=== PATIENT | male | born 1940 | race Caucasian/White ===

== ENCOUNTER → 2016-11-19 | Day surgery (SDC) | payer OTHER ==
[~2016-11-19] VITALS: Ht 170.2 cm; Wt 135.0 kg
[~2016-11-19] MED LIST: ACET1TAB84 PO; AMLO-110 PO; APR/25 PO; AREDS PO; ASPI325T45 PO; ATEN-175 PO; ATOR10TA88 PO; CARV25TA PO; CINNOIL4 PO; DCL250 PO; FINA5TAB PO; FURO80TA63 PO; GUAI1TAB69 PO; HYDR100T12 PO; INSU70IN2 SC; LISI40TA PO; MISCTAB27 PO; OPTIRAY 320 IV PRN; OXGN; OXYC-57 PO; SENN-61 PO; SNK PO; SODIUM CHLORIDE 0.9% 1000ML 1,000 ML IV SCH; [UNRECOGNIZED DRUG - OTHER] PO; [UNRECOGNIZED DRUG - OTHER] PO; [UNRECOGNIZED DRUG - OTHER] PO
[2016-11-19 08:42] VITALS: BP 173/77; PULSE 65; TEMP 36.1; O2SAT 97; Ht 170.2 cm; Wt 135.0 kg
--- NOTE | 2016-11-19 13:29 | DIAGNOSTIC IMAGING REPORT ---
CT ANGIOGRAM OF THE ABDOMEN AND PELVIS COMBO CLINICAL HISTORY: Follow-up status post abdominal aortic aneurysm repair. COMPARISON STUDY: Abdominal CT dated 07/20/2013. TECHNIQUE: Before and following the IV administration of 118 cc of Optiray 320, CT angiogram of the abdomen and pelvis was performed from the lung bases the proximal femora using the stent graft protocol. Images are reviewed in the axial, sagittal, and coronal planes. 3-D MIPS images are created and assessed. IV contrast was administered without complication. CT DOSE: 5110.93 mGy.cm FINDINGS: Lower chest: The heart is enlarged and without pericardial effusion. The coronary arteries are densely calcified. Emphysematous changes noted in the lower lobes. There is dependent atelectasis. No airspace consolidation or pleural effusion is identified. Scarring is identified in the lingula. A 3 mm nodule in the right middle lobe seen on image #15 and a 6 mm nodule at the left lung base on image #74 are unchanged from 2013 and of doubtful significance. Liver: The contrast-enhanced liver is normal in size, contour, and attenuation. A 1.4 cm cyst is noted in the right lobe of the liver. There is no intrahepatic or ductal dilatation. The main portal veins appear patent. Gallbladder: Unremarkable. Spleen: Normal in size and attenuation. Pancreas: Unremarkable. Adrenal glands: There is nodular thickening of both adrenal glands. Kidneys: There is a 10 mm nonobstructing calculus in the lower pole of the right kidney. A 4 mm nonobstructing calculus is seen in the left upper pole. Renovascular calcifications are observed. The contrast enhanced kidneys are atrophic and without hydronephrosis. Large foci of cortical scarring are noted in the left kidney. The kidneys enhance symmetrically. Renal cysts measure up to 3.6 cm. Additional subcentimeter cortical hypodensities also likely represent cysts but are too small for definitive characterization. Abdominal aorta and iliac arteries: There is advanced atherosclerotic calcification of the abdominal aorta and iliac arteries. There are postoperative changes from aortobiiliac stent graft repair of a large bilobed infrarenal abdominal aortic aneurysm. The residual aneurysm sac measures 9.1 cm in AP diameter a.m. and 8.8 cm in transverse diameter. The stent graft is widely patent. There are type II endoleak identified, likely related to lumbar vessels. These are best seen on delayed postcontrast image #225 and #251. The origin of the inferior mesenteric artery has likely been occluded. Major branches of the abdominal aorta: The celiac trunk and superior mesenteric artery are widely patent. There is occlusion at the origin of the inferior mesenteric artery, likely secondary to coils. The distal inferior mesenteric artery is opacified, likely via retrograde flow. Hepatic arterial anatomy is conventional. The splenic artery is patent. The main renal arteries are patent bilaterally and accessory left renal artery has likely been occluded with coils. Bowel: The small bowel and colon are normal in course and caliber. There is mild colonic diverticulosis without CT evidence of acute diverticulitis. Colonic fecal retention is observed. The appendix is not identified and reported surgically absent. Peritoneum: There is no intraperitoneal free air or abdominal ascites. There is laxity of the ventral abdominal wall with diastases of the rectus musculature. Lymphadenopathy: Mildly enlarged retroperitoneal lymph nodes measure up to 1.2 cm in short axis as seen on image #253. There are mildly enlarged external iliac chain lymph nodes. A node on the right measures up to 1.3 cm in short axis as seen on image #383. Pelvic viscera: The prostate gland shows median lobe hypertrophy. The bladder wall is thickened and trabeculated suggesting chronic outlet obstruction. Skeletal structures: The skeletal structures are osteopenic. There is moderate lumbosacral spondylosis. Degenerative change is also seen in the sacroiliac joints. No lytic or blastic bony lesions are seen. IMPRESSION: 1. Again seen are postoperative changes from aortobiiliac stent graft repair of a large bilobed infrarenal abdominal aortic aneurysm. The stent graft is patent. 2. The residual aneurysm sac measures up to 9.1 x 8.8 cm. This has increased in size from 07/20/2013 when it measured 6.5 x 6.7 cm. 3. Several type II endoleaks are identified, likely related to lumbar vessels. 4. 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 5. Cardiomegaly and emphysema. 6. Bilateral nonobstructing renal calculi. 7. Mild colonic diverticulosis without CT evidence of acute diverticulitis. 8. Prostatomegaly with evidence of chronic bladder a little obstruction. 9. Additional findings as above. Electronically signed by: Enoch Willis M.D. 11/19/2016 1:28 PM Dictated Date/Time: 11/19/2016 1:09 PM
--- NOTE | 2016-11-28 08:17 | EDITING REQUIRED CODING QUERY ---
SUPPORTING DIAGNOSIS NEEDED A supporting diagnosis is required for the test/procedure performed on this patient in order for us to be reimbursed by ([employer]). Please provide a supporting diagnosis for the following tests listed below next to the test name along with your signature. *If there is no additional diagnosis for this patient that would support the following test/procedure please document that below next to the test/procedure. Tests that require a supporting diagnosis: DOS 11/19 * NSS before and after CTA DIAGNOSIS: Providers Signature: Thank you Mare Pugh
== END | disposition home or self-care (01) ==
LOC: C.MTU 08:30
PROVIDERS: ATTEND Surgery Vascular Surgery
DX: Z09 Encounter for follow-up examination after completed treatment for conditions other than malignant neoplasm (principal)

== ENCOUNTER 2016-12-09 07:25 | Day surgery (SDC) | payer OTHER ==
[2016-12-09] VITALS (8 sets, daily range): BP systolic 134–184; BP diastolic 63–83; PULSE 63–80; TEMP 36.5–37.5; O2SAT 92–96; Ht 170.2 cm; Wt 132.5 kg
[~2016-12-09] VITALS: Ht 170.2 cm; Wt 132.5 kg
[~2016-12-09 07:25] MED LIST changes: -ACET1TAB84 PO; -AMLO-110 PO; -APR/25 PO; -AREDS PO; -ASPI325T45 PO; -ATOR10TA88 PO; -CARV25TA PO; +CEFAZOLIN 1000MG/55 ML D5W IV SCH; +CEFAZOLIN 3000 MG/65 ML D5W IV SCH; -FURO80TA63 PO; -GUAI1TAB69 PO; +HYDR-4716 PO; -HYDR100T12 PO; -LISI40TA PO; -MISCTAB27 PO; -OPTIRAY 320 IV PRN; -SENN-61 PO; +SODIUM BICARBONATE IV SCH; -SODIUM CHLORIDE 0.9% 1000ML 1,000 ML IV SCH; +SODIUM CHLORIDE 0.9% 1000ML IV SCH; +SODIUM CHLORIDE 0.9% IV SCH; -[UNRECOGNIZED DRUG - OTHER] PO; -[UNRECOGNIZED DRUG - OTHER] PO; -[UNRECOGNIZED DRUG - OTHER] PO
[2016-12-09 08:15] LABS: CREATININE 1.3 mg/dl (0.60-1.40)
[2016-12-09] MEDS ORDERED: CARV25TA PO (08:57)
[2016-12-09] MEDS ORDERED: ASPI325T45 PO (08:59)
[2016-12-09] MEDS ORDERED: ATOR10TA82 PO (09:00)
[2016-12-09] MEDS ORDERED: FURO80TA63 PO ×2 (09:02)
[2016-12-09] MEDS ORDERED: HYDR100T12 PO (09:04)
[2016-12-09] MEDS ORDERED: LISI40TA PO (09:04)
[2016-12-09] MEDS ORDERED: AMLO-110 PO (09:04)
[2016-12-09] MEDS ORDERED: ACET1TAB84 PO (09:05)
[2016-12-09] MEDS ORDERED: SENN-61 PO (09:08)
[2016-12-09] MEDS ORDERED: OXGN (09:09)
[2016-12-09] MEDS ORDERED: AREDS PO (09:13)
[2016-12-09] MEDS ORDERED: MISCTAB27 PO (09:14)
[2016-12-09] MEDS ORDERED: [UNRECOGNIZED DRUG - OTHER] PO (09:15)
[2016-12-09] MEDS ORDERED: [UNRECOGNIZED DRUG - OTHER] PO (09:18)
[2016-12-09] MEDS ORDERED: [UNRECOGNIZED DRUG - OTHER] PO (09:19)
[2016-12-09] MEDS ORDERED: GUAI1TAB69 PO (09:20)
--- NOTE | 2016-12-09 10:28 | History and Physical ---
History & Physical Date of Service Dec 09, 2016. History & Physical CC: Endoleak with enlarging sac HPI: Mr. Pfeiffer is a very pleasant 76-year-old gentleman with a history of abdominal aortic aneurysm. Back in 2007, Dr. Levin repaired this endovascularly with using a [place] Excluder endoprosthesis. He subsequently underwent coiling of type 2 endoleaks back in 2010 and again in 2011 by the interventional radiology team in [place]. This was done for a sac enlargement associated with large lumbar branches. He was last seen back in 2011, but he did call in recently and we were able to schedule him an appointment for today. He underwent a CT scan at the [facility] which shows enlargement of his aneurysm sac to 9 cm. It does appear that he has a contrast outside of the endoprosthesis at about the level of the flow divider. The right iliac limb does appear to be a bit short, but its overall hard to tell exactly where this leak is coming from. The top of the graft does come just to below the renal arteries. Overall, Mr. Pfeiffer states that his health is otherwise unchanged. He does have some issues with congestive heart failure. About two years ago he required admision to the hospital where he underwent a significant diuresis up to 30 kilograms or more. He still ambulates. He has had ongoing issues with right lower extremity venous stasis associated with swelling and some superficial ulcerations. His past medical history is significant for diabetes, hypertension, CHF, hyperlipidemia, sleep apnea, chronic renal insufficiency. His past surgical history is significant for the aortic procedures as listed above. In addition, he has undergone prostate surgery, appendectomy and hernia repairs. His medications include amlodipine, aspirin 325, statin, Coreg, finasteride, Lasix 120 mg a.m., 80 mg p.m., hydralazine, insulin, and senna. SOCIAL HISTORY: He is a former smoker. 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 He is . On exam, his heart rate is 71, blood pressure 154/76. In general, he is well- appearing, well-nourished, in no acute distress. Head is atraumatic. Mucous membranes are moist. There is no scleral icterus. His neck is supple. Heart is regular. Breathing is somewhat labored at baseline. His abdomen is obese. There is no palpable mass. He has stigmata of chronic venous disease in the bilateral lower extremities. There is a superficial ulceration on his right lateral calf. He has a palpable dorsalis pedis pulses bilaterally. He did undergo a CTA at the [facility] and we reviewed those images today. Again, this shows residual aortic aneurysm sac measuring up to 9 cm in the direction perpendicular to the flow. There is some contrast seen outside the sac near the upper third of the graft. The graft sits just below the renal arteries. There is no suprarenal fixation. In summary, Mr. Pfeiffer is a 76-year-old gentleman status post endovascular aneurysm repair, now with an enlarging aneurysm sac and visualized endoleak. We had a long discussion with Mr. Pfeiffer today about the natural history of aneurysms and in particular endovascular aneurysm repair. He has undergone previous coiling of a type 2 endoleaks and so he is well versed in these issues. We reminded him that aneurysms typically require operative fixation at around the 5 to 6 cm maria d and it certainly is larger than that at this point. At this time, it is prudent for him to undergo another endovascular procedure. This would likely involve access of the bilateral femoral arteries and injection of contrast. This will help delineate the exact area of the endoleak. If possible, at that time, we would also consider coiling or other management of any endoleaks seen. Given his issues with chronic renal insufficiency (baseline creatinine 1.5), however, it may be prudent to do this as a 2-stage procedure. Again, all this will depend on the type of endoleak that we see at the time of his initial procedure. We did consent him for this initial procedure today. He understands risks, benefits, alternatives and is willing to proceed. In addition, we did remind him that aneurysm of this size have fairly high-risk of rupture. He understands the seriousness of the situation. We will plan to get this scheduled in the coming weeks . I have discussed the risks options and benefits of the procedure with the patient. The patient understands the risks options and benefits and agrees to the procedure.
--- NOTE | 2016-12-09 10:28 | Procedure Note ---
Pre-Mod Sedation Assessment General Date of Moderate Sedation: Dec 09, 2016. Vital Signs: Vital Signs Past 12 Hours Date Time Temp Pulse Resp B/P Pulse Ox O2 Delivery O2 Flow Rate FiO2 12/09/16 08:02 37.5 63 22 134/63 94 Room Air Pre-Sedation Airway Assessment Oral Cavity: Chipped Teeth Short Thick Neck: Yes Hx of Sleep Apnea: Yes Smoking Status: Former Smoker Mallampati Classification: Class I ASA Classification: Class II Notes The planned sedation has been discussed with the patient and consent obtained. I have identified the patient, determined the appropriateness of sedation and have assessed the patient immediately prior to the procedure. All medicine(s) and interventions are by my order.
[2016-12-09] MEDS ORDERED: MIDAZOLAM HCL 1 MG/ML 2ML VIAL ONE ×2 (11:32→12:38)
[2016-12-09] MEDS ORDERED: FENTANYL CITRATE INJ 50 MCG/1 ML 2 ML VIAL ONE ×2 (11:32→12:38)
[2016-12-09] MEDS ORDERED: HEPARIN SOD (PORCINE) 1000 UNIT/ML 10 ML VIAL ONE (11:40)
[2016-12-09] MEDS ORDERED: FENTANYL CITRATE INJ 50 MCG/1 ML 2 ML VIAL IV ONE ×2 (11:53→12:23)
[2016-12-09] MEDS ORDERED: MIDAZOLAM HCL 1 MG/ML 2ML VIAL IV ONE ×2 (11:53→12:23)
[2016-12-09] MEDS ORDERED: HEPARIN SOD (PORCINE) 1000 UNIT/ML 10 ML VIAL IV ONE (11:55)
[2016-12-09] MEDS ORDERED: LIDOCAINE HCL 1% 20 ML VIAL INJ ONE (12:03)
[2016-12-09] MEDS ORDERED: IODIXANOL (VISIPAQUE) 270 MG/ML 150ML XX ONE (12:53)
--- NOTE | 2016-12-09 13:03 | [facility] Post Operative Brief Note ---
Immediate Operative Summary Operative Date Dec 09, 2016. Pre-Operative Diagnosis Endoleak with enlarging sac Post-Operative Diagnosis Same Procedure(s) Performed Aortogram, Bilateral Cannulation Of Aorta, Mechanical Closure Of Bilateral Femoral Arteries, Moderate Conscious Sedation ([id number]) Surgeon Lenny Conservation Assistant Surgeon(s) Rosa Estimated Blood Loss 15 ml Findings Type I endoleak at renal Specimens None Anesthesia Local with conscious sedation Complication(s) None Disposition
--- NOTE | 2016-12-09 13:08 | Discharge Instructions ---
Discharge Instructions Date of Service Dec 09, 2016. Visit Reason for Visit: Endo Leak Type 1 Discharge Discharge Diagnosis / Problem: Type I endoleak Discharge Goals Goal(s): Diagnostic testing Activity Recommendations Activity Limitations: per Instructions/Follow-up section Anesthesia . Post Anesthesia Instructions: If you have had General Anesthesia or IV Sedation: * Do not drive today. * Resume driving when surgeon permits. * Do not make important decisions or sign legal documents today. * Call surgeon for: 1. Temperature elevations greater than 101 degrees F. 2. Uncontrollable pain. 3. Excessive bleeding. 4. Persistent nausea and vomiting. 5. Medication intolerance (nausea, vomiting or rash). * For nausea and vomiting use only clear liquids such as: tea, soda, bouillon until nausea subsides, then gradually increase diet as tolerated. * If you have any concerns or questions, call your surgeon's office. If physician is unavailable and it is an emergency, call 911 or go to the nearest emergency room. . Instructions / Follow-Up Instructions / Follow-Up SPECIAL CARE INSTRUCTIONS: Medications: * Continue to take your medications as directed. If you have been given a prescription for Plavix, please fill it immediately and take as directed. Incision Care: * Your puncture site may have some bruising and minor swelling for about one week. * You will have a small dressing covering your puncture site. You may remove the dressing after 24 hours and shower. You may let the warm soapy water run over it, but be sure to dry the puncture site well and keep it dry. * DO NOT IMMERSE THE INCISION IN A TUB/POOL/etc. UNTIL HEALED. * Puncture sites should be kept covered with a band-aid until it begins to heal. Restrictions: * Depending on whether you leg or arm was punctured to access the arteries, you will be required to lay flat, hold your arm still, or both, for about 4 hours after the procedure to prevent bleeding. * Limit your activity for the first 48 hours. You may walk and go up and down steps. Avoid excessive bending or movement at the puncture site. Possible Complications: * Excessive Swelling - after blood flow is improved you may notice increased swelling in the lower legs. This is a normal response. This usually depends on the amount of blockages in the leg, how long they have been there prior to your procedure and how much blood flow was restored. Elevating your legs will help to improve this. Please notify our office ([phone] ) if the swelling does not go away after lying in bed overnight. * Infection/Drainage/Bleeding - Drainage or bleeding from the puncture site should be minimal. If you have excessive bleeding or drainage, call our office ([phone]) right away. * Pain - You may experience some mild pain or soreness at your puncture site. If your pain does not improve, please contact our office ([phone]). Call your doctor and seek emergent treatment if you develop: * Temperature above 101 degrees * Any fever or chills * Any redness or purulent drainage from the puncture site * Any new dusky/blue colored toes or feet with coolness or sharp or aching pain. SKIN IRRITATION: * You may experience some redness and/or swelling in the area where radiation was administered. If any skin irritation occurs, please contact your family physician. FOLLOW UP VISIT: Keep any scheduled doctor appointments. Diet Recommendations Recommended Home Diet: resume previous diet Procedures Procedures Performed: Aortogram, Bilateral Cannulation Of Aorta, Mechanical Closure Of Bilateral Femoral Arteries, Moderate Conscious Sedation ([id number]) Pending Studies Studies pending at discharge: no Medical Emergencies . Who to Call and When: Medical Emergencies: If at any time you feel your situation is an emergency, please call 911 immediately. . Non-Emergent Contact Non-Emergency issues call your: Surgeon . . "Provider Documentation" section prepared by Johnathan Galvez.
--- NOTE | 2016-12-09 15:05 | DIAGNOSTIC IMAGING REPORT ---
DATE OF PROCEDURE: 12/09/2016 PREOPERATIVE DIAGNOSES: Concern for endoleak and expanding aortic aneurysm status post endovascular repair. POSTOPERATIVE DIAGNOSES: Same. PROCEDURES: 1. Bilateral ultrasound-guided femoral access. 2. Multiple diagnostic aortogram. 3. Bilateral groin closures with Star closure device. 4. Conscious sedation for 63 minutes. SURGEON: Dr. Johnathan Galvez. WOODWORKING BELT SANDER: Dr. Arlene Lee. ANESTHESIA: Conscious sedation plus local anesthetic. FLUIDS: 400 mL. URINE OUTPUT: Not recorded. FLUOROSCOPY TIME: 7.2 minutes, 1897 milligrays. CONTRAST: 170 mL. COMPLICATIONS: None apparent. CONDITION: Stable to PACU. INDICATIONS: Mr. Herbert Pfeiffer is a gentleman who underwent endovascular repair multiple years ago. He has had multiple coil embolization for type 2 endoleaks. His aneurysm sac continues to grow. His last CT scan in 2011 demonstrated an aneurysm of 6.2 cm and is now over 9 cm. He was advised of the risks and benefits of undergoing an angiogram and agreed to undergo the procedure. DESCRIPTION OF PROCEDURE: The patient was brought into the operative suite. He was prepped and draped in the usual fashion. Ultrasound-guided femoral access was obtained on the right which was only patent. Then ultrasound-guided access was obtained on the left. A Glidewire was inserted through the right side and advanced into the aorta and over this an Omniflush was placed into the main body of the graft. On the left side, a Glidewire was placed into the side. A 14 balloon was tracked along the wire; however, I was unable to enter into the graft. This was removed and a Quick-Cross was used over the Glidewire. A Radha wire was exchanged via the Quick-Cross catheter. Balloon was then placed into the left limb. It was inflated and an aortogram was taken through the Omniflush. This demonstrated no type 1B leak. Then the balloon was removed. An Amplatz wire was placed. The balloon was removed on the left side. An Amplatz wire was placed through the Omniflush. The Omniflush was then removed and the balloon was tracked over the Amplatz wire. The Omniflush was then placed at the left side and the balloon was inflated on the right, and aortogram was taken of the right limb which did not demonstrate any type 2, 3 or 4 endoleak. The Omniflush was advanced suprarenally. The I-I was placed in ICELANDIC. An arteriogram was shot, appeared to possibly be a type 1 leak. The I-I was then placed in RANKIN and again this demonstrated possible leak. The I-I was adjusted again and clearly demonstrated a type 1A endoleak just below the right renal artery. At this time, it was decided that he would require definitive repair with possible snorkels, Palmaz stenting or endoanchors and will be transferred to a tertiary care center for this repair. The catheters and wires were removed. Bilateral groin shots were obtained demonstrating punctures in the common femoral arteries. Bilateral Star closure devices were used. Pressure was held until hemostasis was obtained and the patient was transferred to the PACU in stable condition. Dr. Johnathan Galvez was present for the entirety of this case. WAGNER
--- NOTE | 2016-12-09 15:54 | Medical Student: [facility] ---
Immediate Operative Summary Operative Date Dec 09, 2016. Pre-Operative Diagnosis Endoleak w enlarging sac Post-Operative Diagnosis same Procedure(s) Performed Abd aortogram, b/l cannulation of aorta, mechanial closure of femoral arteries Surgeon Dr. Galvez Animal Care Taker Surgeon(s) Dr. Lee Estimated Blood Loss 15cc Findings Type 1 endoleak near right renal artery Specimens none Anesthesia local Complication(s) None Disposition Recovery Room / PACU
== END 2016-12-09 16:18 | disposition home or self-care (01) ==
LOC: C.ACU 07:25
PROVIDERS: ATTEND Surgery Vascular Surgery
DX: T82.538A Leakage of other cardiac and vascular devices and implants, initial encounter (principal); Y83.8 Other surgical procedures as the cause of abnormal reaction of the patient, or of later complication, without mention of misadventure at the time of the procedure; I71.4 Abdominal aortic aneurysm, without rupture; E11.9 Type 2 diabetes mellitus without complications; L97.219 Non-pressure chronic ulcer of right calf with unspecified severity; I10 Essential (primary) hypertension; E78.5 Hyperlipidemia, unspecified; G47.30 Sleep apnea, unspecified; I50.9 Heart failure, unspecified; N18.9 Chronic kidney disease, unspecified; I12.9 Hypertensive chronic kidney disease with stage 1 through stage 4 chronic kidney disease, or unspecified chronic kidney disease; Z79.899 Other long term (current) drug therapy; Z79.4 Long term (current) use of insulin; Z87.891 Personal history of nicotine dependence

== ENCOUNTER → 2016-12-17 | Outpatient (CLI) | payer OTHER ==
[~2016-12-17] MED LIST changes: +ACET1TAB84 PO; +AMLO-110 PO; +AREDS PO; +ASPI325T45 PO; -ATEN-175 PO; +ATOR10TA82 PO; +CARV25TA PO; -CEFAZOLIN 1000MG/55 ML D5W IV SCH; -CEFAZOLIN 3000 MG/65 ML D5W IV SCH; -CINNOIL4 PO; -DCL250 PO; +FURO80TA63 PO; +GUAI1TAB69 PO; -HYDR-4716 PO; +HYDR100T12 PO; +LISI40TA PO; +MISCTAB27 PO; -OXYC-57 PO; +SENN-61 PO; -SNK PO; -SODIUM BICARBONATE IV SCH; -SODIUM CHLORIDE 0.9% 1000ML IV SCH; -SODIUM CHLORIDE 0.9% IV SCH; +[UNRECOGNIZED DRUG - OTHER] PO; +[UNRECOGNIZED DRUG - OTHER] PO; +[UNRECOGNIZED DRUG - OTHER] PO
[2016-12-17 18:06] LABS: ESTIMATED AVERAGE GLUCOSE 174 mg/dl; HA1C FLAG Normal (Normal)
[2016-12-17 18:09] LABS: ALKALINE PHOSPHATASE 66 U/L (45-117); ALT/SGPT 24 U/L (12-78); AST/SGOT 17 U/L (15-37); BLOOD UREA NITROGEN 18 mg/dl (7-18); BUN/CREATININE RATIO 15.3 (10-20); CALCIUM 8.3 mg/dl (8.5-10.1); CARBON DIOXIDE 29 mmol/L (21-32); CHLORIDE 106 mmol/L (98-107); CHOLESTEROL 121 mg/dl (0-200); CHOLESTEROL/HDL RATIO 3.2; GLUCOSE 155 mg/dl (70-99); HDL CHOLESTEROL 38 mg/dl; POTASSIUM 3.7 mmol/L (3.5-5.1); SODIUM 142 mmol/L (136-145)
[2016-12-17 18:10] LABS: LDL CHOLESTEROL CALCULATED 48 mg/dl; TRIGLYCERIDES 177 mg/dl (0-150); VERY LOW DENSITY LIPOPROT CALC 35 mg/dl
== END | disposition home or self-care (01) ==
LOC: C.LABMFLN 13:30
PROVIDERS: ATTEND Family Medicine
DX: E11.9 Type 2 diabetes mellitus without complications (principal); I10 Essential (primary) hypertension; E87.6 Hypokalemia; E78.5 Hyperlipidemia, unspecified

== ENCOUNTER → 2016-12-20 | Outpatient (CLI) | payer OTHER | END | disposition home or self-care (01) | LOC: C.LABMFLN 08:57 | PROVIDERS: ATTEND Family Medicine | DX: E11.622 Type 2 diabetes mellitus with other skin ulcer (principal) ==

== ENCOUNTER → 2016-12-31 | Outpatient (CLI) | payer OTHER ==
[~2016-12-31] MED LIST changes: +REGADENOSON 0.4 MG/5 ML SYR ONE
--- NOTE | 2017-01-01 14:03 | MYOCARDIAL PERFUSION SCAN ---
ONE-DAY NUCLEAR MEDICINE TECHNETIUM-99M CARDIOLITE MYOCARDIAL PERFUSION SCAN CLINICAL HISTORY: The patient has a known history of cardiovascular disease. He will likely require vascular surgery in the near future. This stress test is being performed as a preoperative evaluation. COMPARISON: None. TECHNIQUE: For the stress portion of the study, 33.0 mCi of Technetium 99 m Cardiolite IV was injected at 9:15 a.m. 12/31/2016. Thirty minutes following the injection, imaging of the heart was performed in multiple projection. For the rest portion of the study, 10.9 mCi of Technetium 99 m Cardiolite was injected IV at 7:30 a.m. One hour following the injection, imaging of the heart was performed in the same projections. For the stress portion of the study, 0.4 mg of Lexiscan was injected intravenously as per protocol. The patient tolerated the infusion without difficulty. He did not experience chest discomfort. There were no EKG changes over the baseline abnormality of an interventricular conduction delay. Following the study, patient was hemodynamically stable without complaints. FINDINGS: The short axis, vertical long axis, horizontal long axis images were reviewed in detail. There is a small fixed defect in the proximal inferior wall present at both stress and rest. This area demonstrates normal systolic function suggesting diaphragmatic attenuation. This was confirmed on the rotating images. The left ventricle demonstrates normal systolic function without segmental wall motion abnormalities. An estimated left ventricular ejection fraction is 50%. IMPRESSION: 1. No scintigraphic evidence of a myocardial infarction or stress induced myocardial ischemia. 2. Diaphragmatic attenuation noted. 3. No Lexiscan induced chest pain. 4. No Lexiscan induced EKG changes. 5. Low normal left ventricular ejection fraction of 50% without wall motion abnormality.
== END | disposition home or self-care (01) ==
LOC: C.NUCL 06:30
PROVIDERS: ATTEND Family Medicine
DX: R07.89 Other chest pain (principal)

== ENCOUNTER → 2017-02-10 | Outpatient (CLI) | payer OTHER ==
[~2017-02-10] MED LIST changes: +OPTIRAY 320 IV PRN; -REGADENOSON 0.4 MG/5 ML SYR ONE
[2017-02-10 12:59] LABS: BLOOD UREA NITROGEN 24 mg/dl (7-18); BUN/CREATININE RATIO 17.5 (10-20); CALCIUM 8.2 mg/dl (8.5-10.1); CARBON DIOXIDE 28 mmol/L (21-32); CHLORIDE 108 mmol/L (98-107); GLUCOSE 140 mg/dl (70-99); POTASSIUM 3.8 mmol/L (3.5-5.1); SODIUM 144 mmol/L (136-145)
[2017-02-10 13:02] LABS: HEMATOCRIT 44.2 % (42-52); MEAN CELL VOLUME 97.4 fL (80-100); MEAN CORPUSCULAR HEMOGLOBIN 31.1 pg (25-34); MEAN CORPUSCULAR HGB CONC 31.9 g/dl (32-36); PLATELET COUNT 240 K/uL (130-400); RED BLOOD COUNT 4.54 M/uL (4.7-6.1); WHITE BLOOD COUNT 7.33 K/uL (4.8-10.8)
[2017-02-10 13:03] LABS: BASOPHIL % 2.7 % (0-2); COMPLETE YES; EOSINOPHIL % 7.2 %; LYMPH ABS # 1.45 K/uL (1.2-3.4); LYMPHOCYTE % 19.8 %; NEUTROPHILS % 66.7 %
--- NOTE | 2017-02-10 13:43 | DIAGNOSTIC IMAGING REPORT ---
CHEST CTA for PULMONARY ARTERIES CT DOSE: 795.23 mGy.cm HISTORY: Chest pain dyspnea TECHNIQUE: Multiaxial CT images of the chest were performed following the intravenous administration of contrast to evaluate the pulmonary arteries. Maximal intensity projection images were also obtained. COMPARISON STUDY: 10/01/2014 FINDINGS: Moderate ectasia of the thoracic aorta. No well-defined evidence for aneurysm. Bone a past year enhances appropriately. There are no major filling defects. Heart is mildly enlarged. Pulmonary vasculature is moderately prominent. Findings of scattered bibasilar atelectatic and interstitial change. There are no well-defined or consolidative infiltrative changes. IMPRESSION: 1. Study is negative for pulmonary embolus. 2. Findings of pulmonary vascular congestion versus early congestive failure. 3. Bibasilar interstitial and atelectatic changes bilaterally. Electronically signed by: Omar Suazo M.D. 02/10/2017 1:41 PM Dictated Date/Time: 02/10/2017 1:38 PM
--- NOTE | 2017-02-10 14:41 | DIAGNOSTIC IMAGING REPORT ---
ULTRASOUND RIGHT VENOUS DOPP LOWER EXT UNILAT CLINICAL HISTORY: Right leg swelling. Shortness of breath. COMPARISON STUDY: No previous studies for comparison. FINDINGS: Real-time and color flow Doppler imaging were performed. Flow was seen within the femoral, popliteal and calf veins with no intraluminal thrombus demonstrated. The saphenous vein is patent. IMPRESSION: No evidence of right lower extremity DVT. Electronically signed by: Bakari Paul M.D. 02/10/2017 2:40 PM Dictated Date/Time: 02/10/2017 2:40 PM
== END | disposition home or self-care (01) ==
LOC: C.CTS 11:33
PROVIDERS: ATTEND Family Medicine
DX: R06.00 Dyspnea, unspecified (principal); M79.89 Other specified soft tissue disorders; J84.9 Interstitial pulmonary disease, unspecified; J98.11 Atelectasis

== ENCOUNTER → 2017-03-27 | Outpatient (CLI) | payer OTHER ==
[~2017-03-27] MED LIST changes: -ATOR10TA82 PO; +ATOR10TA88 PO; -OPTIRAY 320 IV PRN
[2017-03-27 14:45] LABS: ALT/SGPT 25 U/L (12-78); AST/SGOT 20 U/L (15-37); BLOOD UREA NITROGEN 24 mg/dl (7-18); BUN/CREATININE RATIO 17.4 (10-20); CALCIUM 8.8 mg/dl (8.5-10.1); CARBON DIOXIDE 31 mmol/L (21-32); CHLORIDE 103 mmol/L (98-107); CHOLESTEROL 111 mg/dl (0-200); CHOLESTEROL/HDL RATIO 2.6; GLUCOSE 108 mg/dl (70-99); HDL CHOLESTEROL 42 mg/dl; LDL CHOLESTEROL CALCULATED 51 mg/dl; POTASSIUM 3.4 mmol/L (3.5-5.1); SODIUM 143 mmol/L (136-145); TRIGLYCERIDES 88 mg/dl (0-150); VERY LOW DENSITY LIPOPROT CALC 18 mg/dl
[2017-03-27 14:46] LABS: PROSTATE SPECIFIC ANTIGEN 0.944 ng/ml (0.000-4.000)
[2017-03-28 08:01] LABS: ESTIMATED AVERAGE GLUCOSE 143 mg/dl; HA1C FLAG Normal (Normal)
== END | disposition home or self-care (01) ==
LOC: C.LABMFLN 07:52
PROVIDERS: ATTEND Family Medicine
DX: I11.0 Hypertensive heart disease with heart failure (principal); E78.5 Hyperlipidemia, unspecified; I50.32 Chronic diastolic (congestive) heart failure; N20.0 Calculus of kidney; N40.1 Benign prostatic hyperplasia with lower urinary tract symptoms; E11.9 Type 2 diabetes mellitus without complications

== ENCOUNTER → 2017-04-14 | Outpatient (CLI) | payer OTHER | END | disposition home or self-care (01) | LOC: C.LABMFLN 08:23 | PROVIDERS: ATTEND Family Medicine | DX: E87.6 Hypokalemia (principal) ==

== ENCOUNTER → 2017-06-11 | Outpatient (CLI) | payer OTHER ==
--- NOTE | 2017-06-11 10:24 | DIAGNOSTIC IMAGING REPORT ---
KUB HISTORY: N20.0 [id number] COMPARISON: KUB 04/16/2016. Abdomen and pelvis CT 11/19/2016. FINDINGS: The bowel gas pattern is unremarkable. There are no dilated loops of small bowel to suggest an obstruction. Stable calcifications within the left deep pelvis consistent with phleboliths. No ureteral calculi identified. Stable 8 mm stone within the lower pole the right kidney. There are few punctate calcifications overlying the left kidney. These likely represent a combination of punctate stones and vascular calcifications. This is also unchanged. No pneumoperitoneum or pneumatosis. Postoperative changes consistent with aortobiiliac stent graft repair of an abdominal aortic aneurysm. IMPRESSION: Stable bilateral nephrolithiasis. No ureteral calculi. Electronically signed by: Harmeet Medel M.D. 06/11/2017 10:23 AM Dictated Date/Time: 06/11/2017 10:20 AM
[2017-06-11 10:43] LABS: BLOOD UREA NITROGEN 20 mg/dl (7-18); BUN/CREATININE RATIO 15.2 (10-20); CALCIUM 8.8 mg/dl (8.5-10.1); CARBON DIOXIDE 29 mmol/L (21-32); CHLORIDE 107 mmol/L (98-107); GLUCOSE 127 mg/dl (70-99); POTASSIUM 3.4 mmol/L (3.5-5.1); SODIUM 141 mmol/L (136-145)
[2017-06-11 10:52] LABS: ESTIMATED AVERAGE GLUCOSE 166 mg/dl; HA1C FLAG Normal (Normal)
== END | disposition home or self-care (01) ==
LOC: C.RAD 09:39
PROVIDERS: ATTEND Family Medicine
DX: N20.0 Calculus of kidney (principal); E11.9 Type 2 diabetes mellitus without complications; K59.09 Other constipation; E11.43 Type 2 diabetes mellitus with diabetic autonomic (poly)neuropathy

== ENCOUNTER → 2017-12-03 | Outpatient (CLI) | payer OTHER ==
[~2017-12-03] MED LIST changes: +ASPECOTC PO; -ASPI325T45 PO; +ATOR10TA82 PO; -ATOR10TA88 PO
[2017-12-03 13:41] LABS: HEMOGLOBIN A1C 8.1 % (4.5-5.6)
[2017-12-03 14:40] LABS: ALBUMIN 3.4 gm/dl (3.4-5.0); ALT/SGPT 25 U/L (12-78); BLOOD UREA NITROGEN 21 mg/dl (7-18); CALCIUM 8.3 mg/dl (8.5-10.1); CARBON DIOXIDE 28 mmol/L (21-32); CHOLESTEROL 111 mg/dl (0-200); CREATININE 1.35 mg/dl (0.60-1.40); GLUCOSE 171 mg/dl (70-99); POTASSIUM 3.5 mmol/L (3.5-5.1); SODIUM 139 mmol/L (136-145)
[2017-12-03 14:43] LABS: ALKALINE PHOSPHATASE 66 U/L (45-117); AST/SGOT 18 U/L (15-37); LDL CHOLESTEROL CALCULATED 53 mg/dl; TOTAL PROTEIN 6.9 gm/dl (6.4-8.2)
== END | disposition home or self-care (01) ==
LOC: C.LABMFLN 08:14
PROVIDERS: ATTEND Family Medicine
DX: E78.5 Hyperlipidemia, unspecified (principal); I50.32 Chronic diastolic (congestive) heart failure; E11.43 Type 2 diabetes mellitus with diabetic autonomic (poly)neuropathy

== ENCOUNTER → 2017-12-25 | Outpatient (CLI) | payer OTHER ==
--- NOTE | 2017-12-25 14:46 | DIAGNOSTIC IMAGING REPORT ---
R KNEE 1 OR 2 VIEWS ROUTINE CLINICAL HISTORY: Right knee pain. COMPARISON: None FINDINGS: Alignment of the right knee is anatomic. No fracture or suspicious lesion is present. There is extensive vascular calcification. A small right knee joint effusion is noted. Moderate medial compartment joint space narrowing is noted with osteophytosis. There is osteophytosis within the patellofemoral and lateral compartments. There is suspected joint space narrowing within the patellofemoral compartment. IMPRESSION: 1. No acute fracture. 2. Moderate tricompartmental osteoarthritis of the right knee. 3. Small right knee joint effusion. Electronically signed by: Ramone Hawley M.D. 12/25/2017 2:45 PM Dictated Date/Time: 12/25/2017 2:44 PM
--- NOTE | 2017-12-25 14:55 | DIAGNOSTIC IMAGING REPORT ---
LUMBAR SPINE 5 VIEWS CLINICAL HISTORY: Chronic low back pain. FINDINGS: Five views of the lumbar spine are compared to study dated 02/24/2013. Correlation is made with abdominal CT dated 11/19/2016. The skeletal structures are osteopenic. There is no radiographic evidence of acute fracture or malalignment. Vertebral body height and alignment are maintained throughout the lumbar spine. Small anterior osteophytes are seen throughout. There is no evidence of spondylolysis. The transverse and spinous processes appear intact. Xkesxbcl-[id number] facet arthropathy is seen in the [id number] lumbar region. The disc spaces appear preserved. The visualized sacrum and bony pelvis appear intact. Mild sclerotic change is noted in the sacroiliac joints. An aortobiiliac stent graft is identified. Numerous embolization coils are seen projecting over the abdomen and the left renal artery. Bilateral nonobstructing renal calculi are observed. No bowel obstruction is seen. Phleboliths are observed in the pelvis. IMPRESSION: 1. No acute bony abnormality is identified involving the lumbar spine. 2. Osteopenia and spondylotic change as above. Dictated: 12/25/2017 2:44 PM Transcribed: 12/25/2017 2:55 PM Tenisha Electronically signed by: Enoch Willis M.D. 12/25/2017 2:57 PM Dictated Date/Time: 12/25/2017 2:44 PM
== END | disposition home or self-care (01) ==
LOC: C.RAD 13:54
PROVIDERS: ATTEND Family Medicine
DX: M17.11 Unilateral primary osteoarthritis, right knee (principal); M85.88 Other specified disorders of bone density and structure, other site

== ENCOUNTER → 2018-04-07 | Outpatient (CLI) | payer OTHER ==
[~2018-04-07] MED LIST changes: -AMLO-110 PO; +AMLO5TAB3 PO; +CARV25TA2 PO; +LISI40TA3 PO; +SILV1CRE73 TOP
[2018-04-07 13:20] LABS: HEMOGLOBIN A1C 8.6 % (4.5-5.6)
[2018-04-07 13:36] LABS: ALBUMIN 3.3 gm/dl (3.4-5.0); ALKALINE PHOSPHATASE 54 U/L (45-117); ALT/SGPT 23 U/L (12-78); AST/SGOT 19 U/L (15-37); BLOOD UREA NITROGEN 19 mg/dl (7-18); CALCIUM 8.4 mg/dl (8.5-10.1); CARBON DIOXIDE 27 mmol/L (21-32); CHOLESTEROL 98 mg/dl (0-200); CREATININE 1.38 mg/dl (0.60-1.40); GLUCOSE 134 mg/dl (70-99); LDL CHOLESTEROL CALCULATED 34 mg/dl; POTASSIUM 3.5 mmol/L (3.5-5.1); SODIUM 138 mmol/L (136-145)
== END | disposition home or self-care (01) ==
LOC: C.LABMFLN 08:17
PROVIDERS: ATTEND Family Medicine
DX: I11.0 Hypertensive heart disease with heart failure (principal); E78.5 Hyperlipidemia, unspecified; E11.43 Type 2 diabetes mellitus with diabetic autonomic (poly)neuropathy; M54.9 Dorsalgia, unspecified; I50.32 Chronic diastolic (congestive) heart failure

== ENCOUNTER 2018-04-16 14:47 | Inpatient (IN) | payer OTHER ==
[~2018-04-16] VITALS: Ht 170.2 cm; Wt 134.0 kg
[~2018-04-16 14:47] MED LIST changes: -ASPI-461 PO; -CARV25TA2 PO; -IMDSR30 PO; -LISI40TA3 PO; -NRV5 PO; -NTRSLP4 SL; -SILV1CRE73 TOP
[2018-04-16] MEDS ORDERED: ASPIRIN 81 MG CHEW PO STA ×2 (15:21→15:29)
--- NOTE | 2018-04-16 15:42 | DIAGNOSTIC IMAGING REPORT ---
CHEST ONE VIEW PORTABLE CLINICAL HISTORY: cpeval for pna chest pain. Dyspnea. COMPARISON STUDY: 02/10/2015 FINDINGS: Moderate cardiomegaly. Prominent pulmonary vasculature. Diaphragms are smooth. IMPRESSION: Congestive failure The above report was generated using voice recognition software. It may contain grammatical, syntax or spelling errors. Electronically signed by: Omar Suazo M.D. 04/16/2018 3:41 PM Dictated Date/Time: 04/16/2018 3:41 PM
[2018-04-16 16:02] LABS: BASO % 0.6 %; BASO ABS # 0.04 K/uL (0-0.2); EOS % 2.5 %; EOS ABS # 0.18 K/uL (0-0.5); HEMATOCRIT 45.6 % (42-52); HEMOGLOBIN 14.9 g/dL (14.0-18.0); IG# 0.02 K/uL (0.00-0.02); LYMPH % 15.7 %; LYMPH ABS # 1.12 K/uL (1.2-3.4); MEAN CELL VOLUME 98.9 fL (80-100); MEAN CORPUSCULAR HEMOGLOBIN 32.3 pg (25-34); MEAN CORPUSCULAR HGB CONC 32.7 g/dl (32-36); MEAN PLATELET VOLUME 10.4 fL (7.4-10.4); MONO % 9.3 %; MONO ABS # 0.66 K/uL (0.11-0.59); NEUT % 71.6 %; PLATELET COUNT 208 K/uL (130-400); RED CELL DISTRIBUTION WIDTH CV 13.1 % (11.5-14.5); WHITE BLOOD COUNT 7.12 K/uL (4.8-10.8)
[2018-04-16 16:16] LABS: INR 0.9 (0.9-1.1); PTT PATIENT 26.1 SECONDS (21.0-31.0)
[2018-04-16 16:27] LABS: CALCIUM 8.6 mg/dl (8.5-10.1); CKMB 3.8 ng/ml (0.5-3.6); CREATININE 1.18 mg/dl (0.60-1.40); POTASSIUM 3.7 mmol/L (3.5-5.1)
[2018-04-16] MEDS ORDERED: AMLO5TAB3 PO (17:22)
[2018-04-16] MEDS ORDERED: ATOR10TA82 PO (17:22)
[2018-04-16] MEDS ORDERED: CARV25TA2 PO (17:22)
[2018-04-16] MEDS ORDERED: FINA5TAB PO (17:22)
[2018-04-16] MEDS ORDERED: LISI40TA3 PO (17:22)
[2018-04-16] MEDS ORDERED: SILV1CRE73 TOP (17:22)
[2018-04-16] MEDS ORDERED: HYDR100T12 PO (17:22)
[2018-04-16] MEDS ORDERED: FURO80TA63 PO (17:22)
--- NOTE | 2018-04-16 18:31 | History and Physical ---
History & Physical Date & Time of Service: Apr 16, 2018 at 17:33 Chief Complaint: Chest Pain,Abnormal Labs Primary Care Physician: Enoch Boo M.D. History of Present Illness Source: patient, hospital records, other 77 y/o M Hx HTN, HLD, CHF, BPH, COPD, morbidly obese, SOPHIA, gout, AAA - 10cm. The pt presents with CP. The pain is central, intermittent and nonradiating. He denies N/V or diaphoresis. He has been SOB, mostly when lying down. Initial troponin was (+). An EKG did not support acute ischemia. Past Medical/Surgical History 1) HTN 2) HPL 3) CHF - nondefinitive echo 2014 due to habitus - EF likely normal, diastolic dysfunction likely present. 4) Morbid obesity 5) SOPHIA 6) COPD - not compliant with CPAP 7) The pt has a 10cm AAA which was repaired initially in 2007, required repair of leaks in 2010, 2011 due to an endoleak with saccular expansion - additional leak 2016 - declined repair following an aortogram. The leak was not clearly defined at the time. An additional coiling procedure was considered, however, the pt does not want any further intervention regarding his aneurysm. 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 Smoking Status: Former Smoker Marital Status: Occupational Status: retired Allergies Coded Allergies: No Known Allergies (Verified , 12/09/16) Home Medications Scheduled Amlodipine (Norvasc), 5 MG PO DAILY Atorvastatin (Lipitor), 10 MG PO HS Carvedilol (Coreg), 25 MG PO BID Finasteride (Proscar), 5 MG PO DAILY Furosemide (Lasix), 120 MG PO BID Hydralazine Hcl (Apresoline), 100 MG PO TID Lisinopril (Lisinopril), 40 MG PO DAILY Silver Sulfadiazine (Silvadene), 1 APPLN TOP DAILY Review of Systems Constitutional: No fever, No chills, No sweats Eyes: No worsening of vision ENT: No hearing loss, No unusual epistaxis, No nasal symptoms Respiratory: + shortness of breath, + dyspnea on exertion, + dyspnea at rest, No cough, No sputum, No wheezing Cardiovascular: + chest pain, No orthopnea, No PND Abdomen: No pain, No nausea, No vomiting Musculoskeletal: + joint pain (chronic ) Genitourinary - Male: No hematuria, No dysuria Neurologic: No memory loss, No paralysis, No weakness Psychiatric: No depression symptoms Endocrine: No fatigue Hematologic / Lymphatic: No abnormal bleeding/bruising Integumentary: No rash Allergic / Immunologic: No environmental allergies Physical Exam Vital Signs Date Time Temp Pulse Resp B/P (MAP) Pulse Ox O2 Delivery O2 Flow Rate FiO2 04/16/18 16:34 68 22 170/97 91 04/16/18 16:06 74 04/16/18 15:39 92 Room Air 04/16/18 15:38 66 15 139/73 92 Room Air 04/16/18 14:51 36.4 63 18 158/81 92 General Appearance: + pertinent finding (MOrbidly obese, elderly male in no distress - appears dypneic) Head: normocephalic Eyes: normal inspection ENT: normal ENT inspection, pharynx normal Neck: supple, + pertinent finding (cannot evaluate JVD) Respiratory/Chest: + pertinent finding (Poor air movement - no clear crackles - end expiratory wheezing) Cardiovascular: regular rate, rhythm, + pertinent finding (faint heart sounds) Abdomen/GI: normal bowel sounds, non tender, soft Back: normal inspection, no CVA tenderness Extremities/Musculoskelatal: normal range of motion, + pedal edema 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, no motor/sensory deficits, alert, oriented x 3 Skin: normal color Diagnostics Laboratory Results Results Past 24 Hours Test 04/16/18 15:50 Range/Units White Blood Count 7.12 4.8-10.8 K/uL Red Blood Count 4.61 4.7-6.1 M/uL Hemoglobin 14.9 14.0-18.0 g/dL Hematocrit 45.6 42-52 % Mean Corpuscular Volume 98.9 80-100 fL Mean Corpuscular Hemoglobin 32.3 25-34 pg Mean Corpuscular Hemoglobin Concent 32.7 32-36 g/dl Platelet Count 208 130-400 K/uL Mean Platelet Volume 10.4 7.4-10.4 fL Neutrophils (%) (Auto) 71.6 % Lymphocytes (%) (Auto) 15.7 % Monocytes (%) (Auto) 9.3 % Eosinophils (%) (Auto) 2.5 % Basophils (%) (Auto) 0.6 % Neutrophils # (Auto) 5.10 1.4-6.5 K/uL Lymphocytes # (Auto) 1.12 1.2-3.4 K/uL Monocytes # (Auto) 0.66 0.11-0.59 K/uL Eosinophils # (Auto) 0.18 0-0.5 K/uL Basophils # (Auto) 0.04 0-0.2 K/uL RDW Standard Deviation 47.0 36.4-46.3 fL RDW Coefficient of Variation 13.1 11.5-14.5 % Immature Granulocyte % (Auto) 0.3 % Immature Granulocyte # (Auto) 0.02 0.00-0.02 K/uL Prothrombin Time 9.9 9.0-12.0 SECONDS Prothromb Time International Ratio 0.9 0.9-1.1 Activated Partial Thromboplast Time 26.1 21.0-31.0 SECONDS Partial Thromboplastin Ratio 1.0 Sodium Level 142 136-145 mmol/L Potassium Level 3.7 3.5-5.1 mmol/L Chloride Level 105 98-107 mmol/L Carbon Dioxide Level 31 21-32 mmol/L Anion Gap 5.0 3-11 mmol/L Blood Urea Nitrogen 23 7-18 mg/dl Creatinine 1.18 0.60-1.40 mg/dl Est Creatinine Clear Calc Drug Dose 69.8 ml/min Estimated GFR () 68.6 Estimated GFR (Non- 59.2 BUN/Creatinine Ratio 19.4 10-20 Random Glucose 110 70-99 mg/dl Calcium Level 8.6 8.5-10.1 mg/dl Total Creatine Kinase 243 39-308 U/L Creatine Kinase MB 3.8 0.5-3.6 ng/ml Creatine Kinase MB Ratio 1.6 0-3.0 Troponin I 0.131 0-0.045 ng/ml Diagnostic Radiology CXR: CHF EKG Sinus, LVH, IVCD - no acute changes Impression Assessment and Plan 77 y/o M Hx HTN, HLD, CHF, BPH, COPD, morbidly obese, SOPHIA, gout, AAA - 10cm. The pt presents with CP. The pain is central, intermittent and nonradiating. He denies N/V or diaphoresis. He has been SOB, mostly when lying down. Initial troponin was (+). An EKG did not support acute ischemia. 1) CP - elevated trop - possible NSTEMI - we will place him on anticoagulation, ASA and an increased Statin dose. He will continue Carvedilol. An echo and cardiology consult are pending. Serial enzymes are requested. 2) CHF - appears to be slightly overloaded and dyspneic, although not hypoxic. We will provide a dose of IV Lasix and maintain him on his scheduled PO dose as well. His troponin may be elevated partially due to CHF. 3) COPD - no evidence of acute exacerbation. We would opt for Ipratropium if a neb was needed to avoid tachycardia and additional stress on the aneurysm. 4) AAA - this was discussed with the vascular service - he does not want any further intervention. It is acceptable to proceed with anticoagulation at present. 5) HTN/HPL - cont Atorvastatin, Lisinopril, Norvasc, Coreg Full code - full dose Heparin Total time for this admit including review of labs, meds, imaging, records - discussion with pt, ER attending, vascular surgery - 40 min Resuscitation Status VTE Prophylaxis Will order VTE Prophylaxis: Yes
--- NOTE | 2018-04-16 18:42 | EMERGENCY ROOM VISIT NOTE ---
History Report prepared by Tammy: Sohail Saini Under the Supervision of: Dr. Fermin Khan M.D. First contact with patient: 15:09 Chief Complaint: CHEST PAIN Stated Complaint: CHEST PAIN,ABNORMAL LABS History of Present Illness The patient is a 77 year old male who presents to the Emergency Room with complaints of a currently resolved dull pain in his chest occurring once a week ago and once this morning. He states that the pain is in the center of his chest. He reports that last week, his pain was mild and was resolved after taking a nitroglycerin. He states that this morning he experienced a pain of 1 or 2/10 in severity, stating that he saw Dr. Boo and blood was drawn. He reports his chest pain today is also resolved. He reports that he experiences shortness of breath, depending on his position. He denies a history of heart attack, but reports that family members from a heart attack. He notes that he has an abdominal aneurysm. He was told that it was enlarging over 10 cm but he did not want to have it repaired. He does state that his uncle of a ruptured aneurysm. He reports cellulitis in his legs, noting a "problem with blood flow" and stating that his right leg is worse than his left. He states that he used to smoke. Source of History: patient Onset: once a week ago, once this morning Position: chest (center) Symptom Intensity: this morning 1 or 2/10 Quality: dull Timing: resolved Modifying Factors (Relieving): other (nitroglycerin) Associated Symptoms: + SOB (depending on position) Review of Systems See HPI for pertinent positives & negatives. A total of 10 systems reviewed and were otherwise negative. Past Medical & Surgical Medical Problems: (1) Diabetes (2) Hypertension (3) Kidney stone (4) NSTEMI (non-ST elevated myocardial infarction) Family History FH: heart attack Social History Smoking Status: Former Smoker Marital Status: Housing Status: lives with significant other Occupation Status: retired Current/Historical Medications Scheduled Amlodipine (Norvasc), 5 MG PO DAILY Atorvastatin (Lipitor), 10 MG PO HS Carvedilol (Coreg), 25 MG PO BID Finasteride (Proscar), 5 MG PO DAILY Furosemide (Lasix), 120 MG PO BID Hydralazine Hcl (Apresoline), 100 MG PO TID Lisinopril (Lisinopril), 40 MG PO DAILY Silver Sulfadiazine (Silvadene), 1 APPLN TOP DAILY Allergies Coded Allergies: No Known Allergies (Verified , 12/09/16) Physical Exam Vital Signs Date Time Temp Pulse Resp B/P (MAP) Pulse Ox O2 Delivery O2 Flow Rate FiO2 04/16/18 18:31 167/85 04/16/18 18:25 73 14 91 04/16/18 18:01 152/72 04/16/18 17:55 62 25 85 04/16/18 17:31 143/70 04/16/18 17:25 68 25 87 04/16/18 16:55 69 25 91 04/16/18 16:34 68 22 170/97 91 04/16/18 16:06 74 04/16/18 15:39 92 Room Air 04/16/18 15:38 66 15 139/73 92 Room Air 04/16/18 14:51 36.4 63 18 158/81 92 Physical Exam Constitutional: Vital signs reviewed. Eyes: Pupils are equal round reactive to light. Conjunctiva are noninjected. ENT: Pharynx is clear without erythema or exudate. Mucous membranes are moist. Neck supple without meningeal signs. Respiratory: Clear to auscultation bilaterally. Breath sounds are equal bilaterally. Cardiovascular: Regular rate and rhythm. No rubs or gallops. GI: Soft, nondistended and nontender. Bowel sounds are present. Musculoskeletal: Bilateral lower extremity pitting edema with venous stasis discoloration. Integumentary: No cyanosis. Neurological: The patient is awake and alert. No focal deficits. Psychiatric: Normal affect. Medical Decision & Procedures ER Provider Diagnostic Interpretation: Radiology results as stated below per my review and the radiologist's interpretation: CHEST ONE VIEW PORTABLE CLINICAL HISTORY: cpeval for pna chest pain. Dyspnea. COMPARISON STUDY: 02/10/2015 FINDINGS: Moderate cardiomegaly. Prominent pulmonary vasculature. Diaphragms are smooth. IMPRESSION: Congestive failure The above report was generated using voice recognition software. It may contain grammatical, syntax or spelling errors. Electronically signed by: Omar Suazo M.D. 04/16/2018 3:41 PM Dictated Date/Time: 04/16/2018 3:41 PM Laboratory Results 04/16/18 15:50 Red Blood Count 4.61, Mean Corpuscular Volume 98.9, Mean Corpuscular Hemoglobin 32.3, Mean Corpuscular Hemoglobin Concent 32.7, Mean Platelet Volume 10.4, Neutrophils (%) (Auto) 71.6, Lymphocytes (%) (Auto) 15.7, Monocytes (%) (Auto) 9.3, Eosinophils (%) (Auto) 2.5, Basophils (%) (Auto) 0.6, Neutrophils # (Auto) 5.10, Lymphocytes # (Auto) 1.12, Monocytes # (Auto) 0.66, Eosinophils # (Auto) 0.18, Basophils # (Auto) 0.04 04/16/18 15:50 Test 04/16/18 15:50 White Blood Count 7.12 K/uL (4.8-10.8) Red Blood Count 4.61 M/uL (4.7-6.1) Hemoglobin 14.9 g/dL (14.0-18.0) Hematocrit 45.6 % (42-52) Mean Corpuscular Volume 98.9 fL (80-100) Mean Corpuscular Hemoglobin 32.3 pg (25-34) Mean Corpuscular Hemoglobin Concent 32.7 g/dl (32-36) Platelet Count 208 K/uL (130-400) Mean Platelet Volume 10.4 fL (7.4-10.4) Neutrophils (%) (Auto) 71.6 % Lymphocytes (%) (Auto) 15.7 % Monocytes (%) (Auto) 9.3 % Eosinophils (%) (Auto) 2.5 % Basophils (%) (Auto) 0.6 % Neutrophils # (Auto) 5.10 K/uL (1.4-6.5) Lymphocytes # (Auto) 1.12 K/uL (1.2-3.4) Monocytes # (Auto) 0.66 K/uL (0.11-0.59) Eosinophils # (Auto) 0.18 K/uL (0-0.5) Basophils # (Auto) 0.04 K/uL (0-0.2) RDW Standard Deviation 47.0 fL (36.4-46.3) RDW Coefficient of Variation 13.1 % (11.5-14.5) Immature Granulocyte % (Auto) 0.3 % Immature Granulocyte # (Auto) 0.02 K/uL (0.00-0.02) Prothrombin Time 9.9 SECONDS (9.0-12.0) Prothromb Time International Ratio 0.9 (0.9-1.1) Activated Partial Thromboplast Time 26.1 SECONDS (21.0-31.0) Partial Thromboplastin Ratio 1.0 Anion Gap 5.0 mmol/L (3-11) Est Creatinine Clear Calc Drug Dose 69.8 ml/min Estimated GFR () 68.6 Estimated GFR (Non- 59.2 BUN/Creatinine Ratio 19.4 (10-20) Calcium Level 8.6 mg/dl (8.5-10.1) Total Creatine Kinase 243 U/L (39-308) Creatine Kinase MB 3.8 ng/ml (0.5-3.6) Creatine Kinase MB Ratio 1.6 (0-3.0) Troponin I 0.131 ng/ml (0-0.045) Laboratory results as reviewed by me. Medications Administered Medications (Trade) Dose Ordered Sig/John Route Start Time Stop Time Status Last Admin Dose Admin Aspirin (Aspirin Chew) 81 mg NOW STAT PO 04/16/18 15:21 04/16/18 15:29 DC 04/16/18 15:34 81 MG Aspirin (Aspirin Chew) 162 mg NOW STAT PO 04/16/18 15:29 04/16/18 15:30 DC 04/16/18 15:34 162 MG ECG Per My Interpretation Indication: chest pain Rate (beats per minute): 66 Rhythm: normal sinus Findings: other (slight ST depression in high lateral leads. No PVCs.) ED Course 1509: The patient was evaluated in room C9. A complete history and physical exam was performed. 1521: Ordered Aspirin 81 mg PO 1529: Ordered Aspirin 162 mg PO 1640: I consulted Dr. Ndiaye - [facility] Hospitalist. He will reevaluate the patient for admission. 165: I discussed results with the patient. He denies chest pain or any other pain at this time, and states that he currently feels "great." 182: I consulted Dr. Ndiaye, who spoke to Dr. Galvez - Alex. He reports that there is no contraindication to anticoagulation in regards to an abdominal aortic aneurysm. Medical Decision This is a 77-year-old male who presents with chest pain. Differential diagnosis includes unstable angina, NE, pneumonia, pleurisy, GERD. I did perform a limited focused review of portions of the patient's old chart on the electronic medical record. The patient had blood work drawn this morning at 10: 00 that showed a Troponin level of 0.126. I did evaluate the patient as noted above. Patient is presenting with resolved chest pain. He had a troponin drawn earlier today that was elevated. He is not currently having any chest pain. He was given aspirin here in the emergency department. IV access was established. The patient was placed on a continuous paint pourer. I did order and personally review the patient's 12- lead EKG and chest x-ray as described above. I did order and review the patient 's blood work as noted in the electronic medical record. His troponin is not significantly changed from earlier. I did discuss the test results with the patient. He is currently not having any symptoms. He denies any chest discomfort, back pain or abdominal pain. I did discuss the case with the hospitalist and case management specialist. Medication Reconcilliation Current Medication List: was personally reviewed by me Blood Pressure Screening Patient's blood pressure: Elevated blood pressure Blood pressure disposition: Referred to PCP referred to hospitalist Consults Time Called: 1634 Consulting Physician: Dr. Ndiaye - [facility] Hospitalist Returned Call: [phone] Ndiaye - [facility] Hospitalist. He will reevaluate the patient for admission Additional Consults: Time Called: 1815 Consulted Physician: Dr. Ndiaye Returned Call: [phone] Additional Comments: I consulted Dr. Ndiaye, who spoke to Dr. Lenny Johnson. He reports that there is no contraindication to anticoagulation in regards to an abdominal aortic aneurysm. Impression Primary Impression: NSTEMI (non-ST elevated myocardial infarction) Additional Impression: Abdominal aortic aneurysm Scribe Attestation The scribe's documentation has been prepared under my direct and personally reviewed by me in its entirety. I confirm that the note above accurately reflects all work, treatment, procedures, and medical decision making performed by me. Departure Information Dispostion Being Evaluated By Hospitalist Referrals Enoch Boo M.D. (PCP) Patient Instructions My [facility] Problem Qualifiers Additional Impression: Abdominal aortic aneurysm Presence of rupture: without rupture Qualified Codes: I71.4 - Abdominal aortic aneurysm, without rupture
[2018-04-16] MEDS ORDERED: ONDANSETRON INJ 2 MG/ML 2 ML VIAL IV PRN (18:45)
[2018-04-16] MEDS ORDERED: ACETAMINOPHEN 325 MG TAB PO PRN (18:45)
[2018-04-16] MEDS ORDERED: ALUMINUM/MAGNESIUM/SIMETH (MAALOX MAX) 30 ML UDC PO PRN (18:45)
[2018-04-16] MEDS ORDERED: NITROGLYCERIN 0.4 MG SL PER TAB CHARGE SL PRN (18:45)
[2018-04-16] MEDS ORDERED: MoRPHine SULFATE 2 MG/ML CARP IV PRN (18:45)
[2018-04-16] MEDS ORDERED: MAGNESIUM HYDROXIDE SUSP 30 ML UDC PO PRN (18:45)
[2018-04-16] MEDS ORDERED: POLYETHYLENE (MIRALAX) 17 GM PACK PO PRN (18:45)
[2018-04-16] MEDS: HEPARIN 25,000 UNIT/500ML D5W 500 ML IV SCH (19:38)
[2018-04-16 19:55] VITALS: BP 166/82; PULSE 68; TEMP 36.4; O2SAT 92; BMI 46.5
[2018-04-16] MEDS ORDERED: LABETALOL HCL IV 5 MG/ML 20ML IV ONE (21:00)
[2018-04-16] MEDS ORDERED: ATORVASTATIN 10 MG TAB PO SCH (21:00)
[2018-04-16] MEDS ORDERED: FUROSEMIDE INJ 40 MG in SYRINGE 0 ML IV ONE (21:00)
[2018-04-16 21:09] VITALS: O2SAT 92
[2018-04-16] MEDS: FUROSEMIDE 80 MG TAB PO SCH (22:16)
[2018-04-16] MEDS: CARVEDILOL 25 MG TAB PO SCH (22:17)
[2018-04-16 23:03] VITALS: BP 138/74; PULSE 65; TEMP 36.3; O2SAT 91
[2018-04-17 02:17] LABS: PTT PATIENT 37.8 SECONDS (21.0-31.0)
[2018-04-17] MEDS ORDERED: HEPARIN IV BOLUS 8,000 UNIT in SYRINGE 0 ML IV ONE (02:45)
[2018-04-17] MEDS: HEPARIN 25,000 UNIT/500ML D5W 500 ML IV SCH ×3 (03:34→10:05)
[2018-04-17 03:44] VITALS: BP 153/82; PULSE 71; TEMP 36.3; O2SAT 93
[2018-04-17 08:00] VITALS: O2SAT 92
[2018-04-17 08:03] VITALS: BP 175/78; PULSE 68; TEMP 36.4; O2SAT 90
--- NOTE | 2018-04-17 08:38 | Cardiology Consultation ---
Cardiology Consultation Date of Consultation: Apr 17, 2018. Requesting Physician: Dr. Ndiaye Attending Physician: Dr. Alexandra Reason for Consultation: Chest pain and elevated troponin Pt evaluation today including: conversation w/ patient, physical exam, chart review, lab review, review of studies, review of inpatient medication list, conversation w/ attending History of Present Illness Mr. Pfeiffer is a pleasant 77-year-old gentleman with a history significant for diabetes, hypertension, dyslipidemia, AAA status post repair at [facility] with redo repair in December 2016 due to endovascular leak, edema, diastolic CHF, COPD, sleep apnea on CPAP. He has also been prescribed oxygen to wear throughout the day while at home intermittently. He was admitted to [facility] yesterday with chest discomfort and elevated troponin levels. He admits that approximately 1 week ago he had chest discomfort but cannot recall what he was doing at that time. He took a nitroglycerin and the pain quickly resolved. He had another episode yesterday after driving. He was sitting at home and had substernal chest discomfort which he described as a mild irritation. It lasted 10-15 minutes before spontaneously resolving. He admits that he has been more short of breath recently. He is not certain if he had associated shortness of breath with his pain. The pain did not radiate. He was evaluated by his PCP yesterday eventually told to come to the emergency department. He admits that his edema has actually improved over time. He maintains a low-sodium diet. While hospitalized, he was started on heparin drip. Dr. Boo had already prescribed isosorbide mononitrate as an outpatient and he believes that that has made him feel better already. He denies melena, hematochezia, hematuria, syncope, near-syncope, palpitations. He admits that he misses Lasix approximately 2 days per week but tries to make up the doses if he misses them. He misses Lasix intermittently secondary to daily schedule. He admits that he has been gaining weight and his glucose has been less controlled recently. He currently feels much better. Review of systems: As above. Review of systems otherwise negative/ unremarkable. Past Medical/Surgical History 1. Diastolic CHF 2. AAA with redo repair in December of 2016 due to endovascular leak 3. COPD 4. Dyslipidemia 5. Hypertension 6. Sleep apnea on CPAP 7. Supplemental oxygen 8. Diabetes 9. Obesity 10. Cellulitis 11. Acid reflux 12. Venous insufficiency Family History FH: heart attack Father with [place] at age 59. Social History Quit smoking in 2007 after 2-3 packs per day for 58 years. Quit alcohol consumption in the past. No drugs. 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 and lives at home. 5 children in total. He is alone in his hospital room. Allergies Coded Allergies: No Known Allergies (Verified , 12/09/16) Medications Current Inpatient Medications Medications (Trade) Dose Ordered Sig/John Route Start Time Stop Time Status Last Admin Dose Admin Amlodipine Besylate (Norvasc Tab) 5 mg DAILY PO 04/17/18 09:00 05/17/18 08:59 Atorvastatin Calcium (Lipitor Tab) 10 mg HS PO 04/16/18 21:00 05/16/18 20:59 04/16/18 22:17 10 MG Carvedilol (Coreg Tab) 25 mg BID PO 04/16/18 21:00 05/16/18 20:59 04/16/18 22:17 25 MG Finasteride (Proscar Tab) 5 mg DAILY PO 04/17/18 09:00 05/17/18 08:59 Furosemide (Lasix Tab) 120 mg BID PO 04/16/18 21:00 05/16/18 20:59 04/16/18 22:16 120 MG Hydralazine HCl (Apresoline Tab) 100 mg TID PO 04/16/18 21:00 05/16/18 20:59 04/16/18 22:15 100 MG Lisinopril (Zestril Tab) 40 mg DAILY PO 04/17/18 09:00 05/17/18 08:59 Acetaminophen (Tylenol Tab) 650 mg Q4H PRN PO 04/16/18 18:45 05/16/18 18:44 Al Hydrox/Mg Hydrox/Simethicone (Maalox Max Susp) 15 ml Q4H PRN PO 04/16/18 18:45 05/16/18 18:44 Magnesium Hydroxide (Milk Of Magnesia Susp) 30 ml Q12H PRN PO 04/16/18 18:45 05/16/18 18:44 Ondansetron HCl (Zofran Inj) 4 mg Q6H PRN IV 04/16/18 18:45 05/16/18 18:44 Nitroglycerin (Nitrostat Tab) 0.4 mg UD PRN SL 04/16/18 18:45 05/16/18 18:44 Morphine Sulfate (MoRPHine SULFATE INJ) 2 mg Q30M PRN IV 04/16/18 18:45 04/30/18 18:44 Polyethylene (Miralax Powder Packet) 17 gm DAILY PRN PO 04/16/18 18:45 05/16/18 18:44 Aspirin (Ecotrin Tab) 81 mg DAILY PO 04/17/18 09:00 05/17/18 08:59 Heparin Sodium/ Dextrose 500 ml @ 42 mls/hr [id number] IV 04/16/18 19:15 05/16/18 19:14 04/17/18 03:34 42 MLS/HR Physical Exam Vital Signs Past 12 Hours Date Time Temp Pulse Resp B/P (MAP) Pulse Ox O2 Delivery O2 Flow Rate FiO2 04/17/18 03:44 36.3 71 22 153/82 (105) 93 Nasal Cannula 2.5 04/16/18 23:03 36.3 65 18 138/74 (95) 91 Nasal Cannula 2.0 04/16/18 21:09 92 Room Air 04/16/18 19:55 36.4 68 21 166/82 92 Room Air 04/16/18 19:35 71 22 175/88 94 Room Air Gen.: No acute distress. Alert and oriented. HEENT: Anicteric sclera. Neck: Thick neck. No appreciable JVD but difficult exam. No bruits. Normal carotid upstrokes bilaterally. Cardiac: PMI was nonpalpable. No ventricular heave. Regular. Normal S1-S2. No audible murmurs, rubs, or gallops. Pulmonary: Clear to auscultation bilaterally without wheezes, rales, or rhonchi. Abdomen: Soft, nontender, nondistended, with normoactive bowel sounds. No bruits noted. Extremities: 2+ radial pulses bilaterally. 2+ posterior tibialis pulses bilaterally. Trace bilateral lower extremity edema. No cyanosis. Chronic venous stasis changes bilateral lower extremities. Psychiatric: Affect appears appropriate. Chest: Nontender to palpation. Data Laboratory Results: Last 24 Hours Test 04/16/18 15:50 04/16/18 20:26 04/16/18 20:47 04/17/18 01:53 White Blood Count 7.12 K/uL Red Blood Count 4.61 M/uL Hemoglobin 14.9 g/dL Hematocrit 45.6 % Mean Corpuscular Volume 98.9 fL Mean Corpuscular Hemoglobin 32.3 pg Mean Corpuscular Hemoglobin Concent 32.7 g/dl Platelet Count 208 K/uL Mean Platelet Volume 10.4 fL Neutrophils (%) (Auto) 71.6 % Lymphocytes (%) (Auto) 15.7 % Monocytes (%) (Auto) 9.3 % Eosinophils (%) (Auto) 2.5 % Basophils (%) (Auto) 0.6 % Neutrophils # (Auto) 5.10 K/uL Lymphocytes # (Auto) 1.12 K/uL Monocytes # (Auto) 0.66 K/uL Eosinophils # (Auto) 0.18 K/uL Basophils # (Auto) 0.04 K/uL RDW Standard Deviation 47.0 fL RDW Coefficient of Variation 13.1 % Immature Granulocyte % (Auto) 0.3 % Immature Granulocyte # (Auto) 0.02 K/uL Prothrombin Time 9.9 SECONDS Prothromb Time International Ratio 0.9 Activated Partial Thromboplast Time 26.1 SECONDS 37.8 SECONDS Partial Thromboplastin Ratio 1.0 1.5 Sodium Level 142 mmol/L Potassium Level 3.7 mmol/L Chloride Level 105 mmol/L Carbon Dioxide Level 31 mmol/L Anion Gap 5.0 mmol/L Blood Urea Nitrogen 23 mg/dl Creatinine 1.18 mg/dl Est Creatinine Clear Calc Drug Dose 69.8 ml/min Estimated GFR () 68.6 Estimated GFR (Non- 59.2 BUN/Creatinine Ratio 19.4 Random Glucose 110 mg/dl Calcium Level 8.6 mg/dl Total Creatine Kinase 243 U/L Creatine Kinase MB 3.8 ng/ml Creatine Kinase MB Ratio 1.6 Troponin I 0.131 ng/ml 0.131 ng/ml 0.146 ng/ml Bedside Glucose 118 mg/dl Test 04/17/18 04:44 Telemetry personally reviewed: No arrhythmia. Sinus rhythm. ECG personally reviewed. ECG 04/16/2018: Sinus rhythm 66 bpm. IVCD. Nonspecific T-wave abnormality. No significant change from 02/10/2015 ECG. Echo 10/02/2014: Poor visualization. Probably normal EF. Dilated IVC. Nuclear stress 12/31/2016: No ischemia or infarct suggested. EF 50%. Normal wall motion. Chest x-ray 04/16/2018: Pulmonary pulmonary vasculature per Radiology. Assessment & Plan ASSESSMENT/PLAN: 1. Angina: Symptoms are concerning for angina especially in light of mildly elevated troponins. He did not rule in for myocardial infarction based on troponin level. We discussed treatment options. Coronary angiography was recommended and risks and benefits were discussed with him. He declines at this time. He prefers medical therapy. He would like to be discharged home. Echocardiogram is pending. Continue aspirin 81 mg daily. Continue beta- andrew, calcium channel andrew, Gee inhibitor. Continue isosorbide mononitrate 30 mg daily which was initiated yesterday by his PCP. Recommend high-intensity statin therapy for presumed underlying CAD. 2. Elevated troponins: Symptoms are concerning for angina especially given his risk factors and elevated troponins. He declines coronary angiography. He was made aware that if he has underlying coronary artery disease, with angina, he could have a myocardial infarction and it could be fatal. He was comfortable with his decision and states that he is ready to go if it is his time. 3. Chronic diastolic CHF: He was felt to be hypervolemic on exam upon presentation. He feels much better overall. Continue home dose of diuretic therapy. Continue low-sodium diet. Monitor weight. 4. Hypertension: Blood pressure elevated. Adjust antihypertensive regimen to better control his blood pressure. Can increase amlodipine to 10 mg daily which may help with angina and also improved blood pressure. 5. Dyslipidemia: Recommend high-intensity statin therapy, but he has declined high-intensity statin therapy in the past and preferred to remain on his current dose. 6. Disposition: He prefers to be discharged home. Patient care has been discussed with Dr. Alexandra of the primary hospitalist service. Recommend close follow-up in the outpatient clinic with Cardiology. Highly complex medical issues for which cardiac catheterization was recommended. Thank you for allowing me to participate in the care of your patient. Please call for any other questions or concerns. Sincerely, Kilo Maradiaga M.D.
[2018-04-17] MEDS ORDERED: AMLODIPINE BESYLATE 5 MG TAB PO SCH ×2 (09:00)
[2018-04-17] MEDS ORDERED: ASPIRIN 81 MG ECTAB PO SCH (09:00)
[2018-04-17] MEDS ORDERED: ISOSORBIDE MONONITRATE 30 MG TABCR PO SCH (09:00)
[2018-04-17] MEDS ORDERED: FINASTERIDE 5 MG TAB PO SCH (09:00)
[2018-04-17] MEDS ORDERED: LISINOPRIL 40 MG TAB PO SCH (09:00)
[2018-04-17 09:09] LABS: HEMATOCRIT 46.6 % (42-52); HEMOGLOBIN 15.3 g/dL (14.0-18.0); MEAN CELL VOLUME 98.9 fL (80-100); MEAN CORPUSCULAR HEMOGLOBIN 32.5 pg (25-34); MEAN CORPUSCULAR HGB CONC 32.8 g/dl (32-36); MEAN PLATELET VOLUME 10.6 fL (7.4-10.4); PLATELET COUNT 190 K/uL (130-400); RED CELL DISTRIBUTION WIDTH CV 13.1 % (11.5-14.5); RED CELL DISTRIBUTION WIDTH SD 47.2 fL (36.4-46.3)
[2018-04-17] MEDS: FUROSEMIDE 80 MG TAB PO SCH (09:14)
[2018-04-17] MEDS: CARVEDILOL 25 MG TAB PO SCH (09:16)
[2018-04-17 09:47] LABS: CALCIUM 8.7 mg/dl (8.5-10.1); CREATININE 1.24 mg/dl (0.60-1.40)
[2018-04-17] MEDS ORDERED: NURSING VERBAL MED ORDER ONE (10:30)
[2018-04-17] MEDS ORDERED: INSULIN HUMAN 70% NPH/30% REGULAR SC SCH (10:30)
[2018-04-17 10:43] LABS: POTASSIUM 3.6 mmol/L (3.5-5.1)
[2018-04-17 10:44] VITALS: Ht 170.2 cm; Wt 134.0 kg
[2018-04-17 11:03] VITALS: BP 165/85; PULSE 69; TEMP 36.5; O2SAT 90
[2018-04-17] MEDS ORDERED: INSU70IN2 SC (12:22)
[2018-04-17] MEDS ORDERED: ASPI-461 PO (12:22)
[2018-04-17] MEDS ORDERED: NRV5 PO (12:22)
[2018-04-17] MEDS ORDERED: NTRSLP4 SL (12:22)
[2018-04-17] MEDS ORDERED: IMDSR30 PO (12:22)
--- NOTE | 2018-04-17 12:26 | Discharge Instructions ---
Discharge Instructions Date of Service Apr 17, 2018. Admission Reason for Admission: Nstemi (Non St Elevated Myocardial Infarction) Discharge Discharge Diagnosis / Problem: Angina Discharge Goals Goal(s): Decrease discomfort, Improve function, Increase independence, Improve disease control, Improve nutritional status, Learn about illness, Diagnostic testing, Therapeutic intervention, Prevent Disease Progression, Specific goals Activity Recommendations Activity Limitations: resume your previous activity . Instructions / Follow-Up Instructions / Follow-Up you have Angina, we recommend cardiac cath evaluation and treatment, however you declines and want to go home with your own risks you need to continue aspirin 81 mg daily. you have Hypertension, antihypertensive amlodipine is being increased to 10 mg daily - you need to follow up with your primary care physician in 1 week, - take medication as instructed, never overdose or any misuse, or take with alcohol, because misuse of medicine may cause organ damage or , call me , or your primary care physician if have questions of discharge medicaitons. - call your primary care physician, or go to local emergency room if has any fever/chill, chest pain, shortness of breathing, nausea/vomiting/abdominal pain , facial droop/slurry speech/local weakness, or if has any questions. - fall precaution - diet as instructed - you need to follow up with your subspecialist, such as Dr. Maradiaga as instructed Current Hospital Diet Patient's current hospital diet: AHA Diet (Heart Healthy) Discharge Diet Recommended Diet: AHA Diet (Heart Healthy) Pending Studies Studies pending at discharge: no Laboratory Results Hemoglobin A1c Test 04/07/18 08:21 Range/Units Estimated Average Glucose 200 mg/dl Hemoglobin A1c 8.6 H 4.5-5.6 % Lipid Panel Test 04/07/18 08:21 Range/Units Triglycerides Level 128 0-150 mg/dl Cholesterol Level 98 0-200 mg/dl HDL Cholesterol 38 mg/dl Cholesterol/HDL Ratio 2.6 LDL Cholesterol, Calculated 34 mg/dl Medical Emergencies . Who to Call and When: Medical Emergencies: If at any time you feel your situation is an emergency, please call 911 immediately. . Non-Emergent Contact Non-Emergency issues call your: Primary Care Provider, Art History Professor . . "Provider Documentation" section prepared by Shemar Alexandra. .
[2018-04-17 12:28] VITALS: BP 165/85; PULSE 69; TEMP 36.5; O2SAT 90
--- NOTE | 2018-04-17 15:04 | Discharge Summary ---
Discharge Summary Date of Service Apr 17, 2018. Discharge Summary Admission Date: Apr 16, 2018 at 18:35 Discharge Date: Apr 17, 2018 Discharge Disposition: Home Principal Diagnosis: angina, NSTEMI Problems/Secondary Diagnoses: Diabetic, hyperglycemia, Procedures: No Consultations: Layer Off Medication Reconciliation New Medications: Amlodipine Besylate (Amlodipine Besylate) 5 Mg Tab 10 MG PO DAILY for 30 Days, #60 TAB Aspirin (Aspirin) 81 Mg Tab 81 MG PO DAILY for 30 Days, #30 TAB Insulin Human Isophan/Regular (Novolin 70/30) Inj 68 UNITS SC BIDM for 1 Day pt has med at home Isosorbide Mononitrate (Isosorbide Mononitrate ER) 30 Mg Tabcr 30 MG PO QAM for 30 Days Nitroglycerin (Nitrostat) 0.4 Mg/1 Tab Subl 0.4 MG SL UD PRN for Chest Pain for 30 Days Continued Medications: Atorvastatin (Lipitor) 10 Mg Tab 10 MG PO HS Carvedilol (Coreg) 25 Mg Tab 25 MG PO BID Finasteride (Proscar) 5 Mg Tab 5 MG PO DAILY Furosemide (Lasix) 80 Mg Tab 120 MG PO BID 1 1/2 OF AN 80 MG TABLET EVERY MORNING AND AFTERNOON. Hydralazine Hcl (Apresoline) 100 Mg Tab 100 MG PO TID Lisinopril (Lisinopril) 40 Mg Tab 40 MG PO DAILY Silver Sulfadiazine (Silvadene) 1 % Cre 1 APPLN TOP DAILY APPLY TO LEG Discontinued Medications: Amlodipine (Norvasc) 5 Mg Tab 5 MG PO DAILY Discharge Exam No more chest pain, sitting up, conversational, no complaint, Review of Systems: Constitutional: No fever, No chills, No sweats, No weight loss, No weakness , No fatigue, No problem reported Eyes: No worsening of vision, No eye pain, No redness, No discharge, No diplopia, No problem reported ENT: No hearing loss, No unusual epistaxis, No nasal symptoms, No sore throat, No tinnitus, No dental problems, No trouble swallowing, No problem reported Cardiovascular: No chest pain, No orthopnea, No PND, No edema, No claudication, No palpitations, No problem reported Abdomen: No pain, No nausea, No vomiting, No diarrhea, No constipation, No GI bleeding, No problem reported Musculoskeletal: No joint pain, No muscle pain, No swelling, No calf pain, No problem reported Genitourinary - Male: No hematuria, No dysuria, No urinary frequency, No urinary urgency, No urinary hesitancy, No urinary retention, No urinary incontinence, No penile discharge, No lesions, No impotence, No problem reported Neurologic: No memory loss, No paralysis, No weakness, No numbness/tingling , No vertigo, No balance problems, No problem reported Psychiatric: No depression symptoms, No anhedonism, No anxiety, No insomnia , No substance abuse, No problem reported Endocrine: No fatigue, No excessive thirst, No excessive urination, No problem reported Hematologic / Lymphatic: No abnormal bleeding/bruising, No clotting problems , No swollen lymph nodes, No night sweats, No problem reported Integumentary: No rash, No itch, No new/changing skin lesions, No color change, No bleeding, No problem reported Physical Exam: General Appearance: WD/WN, + obese Eyes: normal inspection, PERRL ENT: normal ENT inspection, hearing grossly normal Neck: supple, no adenopathy, thyroid normal Respiratory/Chest: chest non-tender, + decreased breath sounds Cardiovascular: regular rate, rhythm, no edema, no gallop, no JVD, no murmur , normal peripheral pulses Abdomen / GI: normal bowel sounds, non tender, no organomegaly, no pulsatile mass Extremities: normal inspection, no calf tenderness, normal capillary refill 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 Hx HTN, HLD, CHF, BPH, COPD, morbidly obese, SOPHIA, gout, AAA - 10cm. Possible angina, with minimal elevation in troponin,. An EKG did not support acute ischemia. possible NSTEMI vs. angina, has been on ASA and an increased Statin dose, continue Carvedilol. CHF with slightly overloaded and dyspneic, Patient got a dose of IV Lasix and cont on his scheduled PO dose as well. COPD - no evidence of acute exacerbation. AAA , progress note, in the emergency room, was discussed with the vascular service - he does not want any further intervention. HTN/HPL - cont Atorvastatin, Lisinopril, Norvasc, Coreg Cardiology input appreciated, cardiology saw patient, recommend cardiac cath, however patient wants to go home, he wants to take all the risk by himself which include cardia pulmonary arrest and even , with present of RN, patient understand and want to take on the risk of himself Full code - full dose Heparin Instructions / Follow-Up you have Angina, we recommend cardiac cath evaluation and treatment, however you declines and want to go home with your own risks you need to continue aspirin 81 mg daily. you have Hypertension, antihypertensive amlodipine is being increased to 10 mg daily - you need to follow up with your primary care physician in 1 week, - take medication as instructed, never overdose or any misuse, or take with alcohol, because misuse of medicine may cause organ damage or , call me , or your primary care physician if have questions of discharge medicaitons. - call your primary care physician, or go to local emergency room if has any fever/chill, chest pain, shortness of breathing, nausea/vomiting/abdominal pain , facial droop/slurry speech/local weakness, or if has any questions. - fall precaution - diet as instructed - you need to follow up with your subspecialist, such as Dr. Maradiaga as instructed Total Time Spent: Greater than 30 minutes This includes examination of the patient, discharge planning, medication reconciliation, and communication with other providers. Discharge Instructions Please refer to the electronic Patient Visit Report (Discharge Instructions) for additional information. Additional Copies To Enoch Boo M.D.
--- NOTE | 2018-04-17 15:47 | ECHOCARDIOGRAM REPORT ---
*NOTICE TO RECEIVING [employer] This information is strictly Confidential and protected under [place] law. [place] law prohibits you from making any further disclosure of this information unless further disclosure is expressly permitted by the written consent of the person to whom it pertains or is authorized by law. A general authorization for the release of medical or other information is not sufficient for this purpose. Hospital accepts no responsibility if the information is made available to any other person, INCLUDING THE PATIENT. Interpretation Summary * Name: MOSES WASHINGTON Study Date: 04/17/2018 07:14 AM BP: 153/82 mmHg * Patient Location: .2T\S\S238\S\1 HR: 70 * : 1940 (M/d/yyyy) Gender: Male Height: 67 in * Age: 77 yrs Ethnicity: CA Weight: 300 lb * Ordering Physician: Juan David Ndiaye * Referring Physician: Enoch Boo * Performed By: Parisa Madrigal RCS * * Reason For Study: ELEVATED TROPONIN * BSA: 2.4 m2 * -- Conclusions -- * The left ventricle is borderline dilated. * There is mild concentric left ventricular hypertrophy. * Left ventricular systolic function is normal. * Grade I diastolic dysfunction, (abnormal relaxation pattern). * Compared to an echocardiogram from 10/2014, there is no longer plethora of the IVC otherwise no change Procedure Details * A complete two-dimensional transthoracic echocardiogram was performed (2D, M-mode, Doppler and color flow Doppler). * The study was technically difficult. * There were technical limitations due to patient'sbody habitus * A contrast injection of Definity was performed to improve assessment of LV function. * Contrast was injected into an intravenous site in the right arm. * One vial of Definity ultrasound contrast was diluted in normal saline to a total volume of 10 ml. A total of '4' ml of solution was administered during imaging. * Lot # [id number] of Definity utilized for procedure. * Expiration date MAR 19. * The attending nurse who injected the contrast agent was AGUEDA CERRATO RN. Left Ventricle * The left ventricle is borderline dilated. * There is mild concentric left ventricular hypertrophy. * Left ventricular systolic function is normal. * Ejection Fraction = 55-60%. * Grade I diastolic dysfunction, (abnormal relaxation pattern). * The left ventricular wall motion is normal. Right Ventricle * The right ventricle is normal in size and function. Atria * The left atrial size is normal. * Right atrial size is normal. Mitral Valve * The mitral valve is grossly normal. * There is no mitral valve stenosis. * There is trace mitral regurgitation. Tricuspid Valve * The tricuspid valve is not well visualized, but is grossly normal. * There is mild tricuspid regurgitation. Aortic Valve * The aortic valve is not well visualized. * No hemodynamically significant valvular aortic stenosis. * There is no significant aortic regurgitation. Pulmonic Valve * The pulmonic valve is not well visualized. Pericardium/Pleural * There is no pericardial effusion. Great Vessels * Normal inferior vena cava diameter and respiratory variation suggests normal central venous pressure. MMode 2D Measurements and Calculations IVSd 1.8 cm IVSs 2.4 cm LVIDd 5.4 cm LVIDs 3.5 cm LVPWd 1.4 cm LVPWs 1.4 cm IVS/LVPW 1.3 FS 34.8 % EDV(Teich) 138.9 ml ESV(Teich) 50.7 ml EF(Teich) 63.5 % EDV(cubed) 154.0 ml ESV(cubed) 42.7 ml EF(cubed) 72.2 % % IVS thick 32.0 % % LVPW thick -5.29 % LV mass(C)d 409.3 grams LV mass(C)dI 170.4 grams/m\S\2 LV mass(C)s 287.7 grams LV mass(C)sI 119.7 grams/m\S\2 SV(Teich) 88.2 ml SI(Teich) 36.7 ml/m\S\2 SV(cubed) 111.2 ml SI(cubed) 46.3 ml/m\S\2 Ao root diam 3.5 cm Ao root area 9.4 cm\S\2 ACS 1.8 cm LA dimension 3.7 cm LA/Ao 1.1 LVOT diam 2.3 cm LVOT area 4.3 cm\S\2 Doppler Measurements and Calculations MV E max darshana 80.7 cm/sec MV A max darshana 119.6 cm/sec MV E/A 0.67 MV P1/2t max darshana 85.4 cm/sec MV P1/2t 80.8 msec MVA(P1/2t) 2.7 cm\S\2 MV dec slope 309.5 cm/sec\S\2 MV dec time 0.23 sec Ao V2 max 103.5 cm/sec Ao max PG 4.3 mmHg Ao max PG (full) 0.90 mmHg ISMA(V,A) 3.8 cm\S\2 ISMA(V,D) 3.8 cm\S\2 LV V1 max PG 3.4 mmHg LV V1 max 92.0 cm/sec
== END 2018-04-17 13:53 | disposition home or self-care (01) | DRG 281 ==
LOC: C.EDB 14:49 → C.2T 18:35 → ENRESERV 18:59 → CANRESERV 18:59 → ENRESERV 19:02
PROVIDERS: ADMIT Internal Medicine; ATTEND Hospitalist
DX: I21.4 Non-ST elevation (NSTEMI) myocardial infarction (principal); I50.32 Chronic diastolic (congestive) heart failure; Z68.42 Body mass index [BMI] 45.0-49.9, adult; E11.65 Type 2 diabetes mellitus with hyperglycemia; I11.0 Hypertensive heart disease with heart failure; J44.9 Chronic obstructive pulmonary disease, unspecified; I71.4 Abdominal aortic aneurysm, without rupture; E78.5 Hyperlipidemia, unspecified; N40.0 Benign prostatic hyperplasia without lower urinary tract symptoms; E66.01 Morbid (severe) obesity due to excess calories; Z87.891 Personal history of nicotine dependence; Z79.899 Other long term (current) drug therapy; Z82.49 Family history of ischemic heart disease and other diseases of the circulatory system

== ENCOUNTER → 2018-04-16 | Outpatient (CLI) | payer OTHER ==
[~2018-04-16] MED LIST changes: +ASPI-461 PO; +IMDSR30 PO; +NRV5 PO; +NTRSLP4 SL
== END | disposition home or self-care (01) ==
LOC: C.LABMFLN 09:50
PROVIDERS: ATTEND Family Medicine
DX: I50.32 Chronic diastolic (congestive) heart failure (principal); R07.9 Chest pain, unspecified

== ENCOUNTER 2019-09-27 20:14 | Inpatient (IN) ==
--- NOTE | 2019-09-27 21:44 | XRay Report ---
XR chest 1V portable CLINICAL HISTORY: Chest Pain dyspnea COMPARISON STUDY: 10/07/2018 FINDINGS: Mild cardiomegaly. Prominent pulmonary vasculature. Possible superimposed density left pulm onary apex. IMPRESSION: 1. Congestive heart failure.. 2. Superimposed infiltrate left pulmonary apex. 3. The stability study should be repeated a later date to ensure resolution. ACT 112: Negative or not required by law. The above report was generated using voice recognition software. It may contain grammatical, syntax or spelling errors. Electronically signed by: Omar Suazo M.D. 09/27/2019 9:42 PM
[2019-09-27] MEDS ORDERED: PIPERACILLIN/TAZOBACTAM 4.5 GM/120 ML BAG IV ONE (21:45)
[2019-09-27] MEDS ORDERED: PIPERACILL/TAZOBAC CONSULT ACTIVE PRN (21:45)
[2019-09-27 21:51] LABS: Basophils # (auto) 0.02 K/uL (0-0.2); Basophils % (auto) 0.2 %; Eosinophils # (auto) 0.03 K/uL (0-0.5); Eosinophils % (auto) 0.3 %; Hemoglobin 10.4 g/dL (14.0-18.0); Immature Granulocytes # (auto) 0.02 K/uL (0.00-0.02); Immature Granulocytes % (auto) 0.2 %; Lymphocytes # (auto) 0.65 K/uL (1.2-3.4); Lymphocytes % (auto) 6.8 %; Mean Corpuscular Hemoglobin 26.6 pg (25-34); Mean Corpuscular Hgb Conc 30.6 g/dL (32-36); Mean Platelet Volume 10.2 fL (7.4-10.4); Monocytes % (auto) 7.4 %; Neutrophils # (auto) 8.09 K/uL (1.4-6.5); Neutrophils % (auto) 85.1 %; Platelet Count 204 K/uL (130-400); RDW Coefficient of Variation 17.6 % (11.5-14.5); RDW Standard Deviation 56.2 fL (36.4-46.3); Red Blood Count 3.91 M/uL (4.7-6.1); White Blood Count 9.51 K/uL (4.8-10.8)
[2019-09-27 22:10] LABS: Albumin Level 2.8 gm/dl (3.4-5.0); BUN Creatinine Ratio 15.8 (10-20); Calcium 8.6 mg/dl (8.5-10.1); Creatinine Clr Calc Pharmacy 54.2 ml/min; Est GFR (African American) 52.7; Est GFR (Non-African American) 45.5; Potassium 3.9 mmol/L (3.5-5.1)
[2019-09-27 22:15] LABS: Albumin Globulin Ratio 0.7 (0.9-2); Bilirubin,Total 0.3 mg/dl (0.2-1); Globulin 4.2 gm/dl (2.5-4.0); Troponin I 0.018 ng/ml (0-0.045)
[2019-09-27 22:38] LABS: Influenza A virus by PCR Neg for Influ A (Neg); Influenza B virus by PCR Neg for Influ B (Neg)
--- NOTE | 2019-09-28 00:04 | Emergency Department Note ---
Entered by Zaheer Nielsen acting as a scribe for History of Present Illness General Chief complaint: Bradycardia Stated complaint: LOW PULSE Time Seen by Provider: 09/27/19 20:51 Source: patient History of Present Illness Onset (ago): hour(s) (earlier today) Location: chest (bradycardia) Pain Consistency: + constant Quality: + other (heart rate of 38) Relieved By: + none Exacerbated By: + none Associated symptoms: + chest pain, + cough (productive), + weakness and + other (tiredness, skin clamminess) The patient is a 79 year old M who presents to the Emergency Room with complaints of constant bradycardia that started earlier today. The patient notes that he came into the ED today because his pulse ox machine was reading a heart rate of 38. He states that he has had chest pain and tiredness for the past 3 days. He describes his chest pain as a pressure. He denies that his chest pain is made better or worse by anything. 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 He adds that he has not been doing these activities due to his loss of energy. He notes that he started to experience skin clamminess, weakness, and a productive cough today. He states that his cough has been producing phlegm. He adds that he is normally on 4L of oxygen at home, but notes that he upped it to 5L today. He denies that he is currently experiencing light-headedness. He notes that he had a stent placed in his belly after an aneurysm. He denies a history of a heart stent placement. He states that he took insulin and metformin today. He denies taking any of his other medications. Home Medications Home Medications Medication Instructions Recorded Confirmed Type acetaminophen 1,000 mg PO Q8H PRN 02/12/19 09/27/19 History Oxygen Home #1 ea 03/02/19 08/13/19 History albuterol sulfate 90 mcg/actuation 1 - 2 inh INHALATION Q4H PRN #1 ea 03/02/19 09/27/19 Rx breath activated powder inhaler carvedilol 25 mg tablet 25 mg PO BID #180 tab 03/02/19 09/27/19 Rx vitamins A,C,B-kzba-lclwvj 14,320 1 cap PO BID #180 cap 03/02/19 09/27/19 Rx unit-226 mg-200 unit capsule blood sugar diagnostic #100 ea 03/31/19 08/13/19 Rx allopurinol 100 mg tablet 200 mg PO DAILY #180 tab 04/19/19 09/27/19 Rx aspirin 81 mg tablet,delayed 81 mg PO .qod tab 04/19/19 09/27/19 History release insulin human U-100 NPH-regulr See Rx Instructions SUBCUT BID #30 04/19/19 09/27/19 Rx 70-30 mix 100 unit/mL subcutaneous ml susp albuterol sulfate 2.5 mg INH Q4H PRN ml 06/02/19 09/27/19 History atorvastatin 10 mg tablet 10 mg PO HS #90 tab 06/04/19 09/27/19 Rx nitroglycerin 0.4 mg sublingual 0.4 mg SUBLINGUAL DIRECTED PRN 06/04/19 09/27/19 Rx tablet #25 tab valsartan 80 mg tablet 80 mg PO DAILY #90 tab 06/04/19 09/27/19 Rx finasteride 5 mg tablet 5 mg PO DAILY #90 tab 07/08/19 09/27/19 Rx hydralazine 100 mg tablet 100 mg PO TID #270 tab 08/10/19 09/27/19 Rx isosorbide mononitrate 60 mg 60 mg PO DAILY #90 tab 08/10/19 09/27/19 Rx tablet,extended release 24 hr metformin 500 mg tablet 1,000 mg PO BID #360 tab 08/10/19 09/27/19 Rx omeprazole 40 mg capsule,delayed 40 mg PO BID #180 cap 08/10/19 09/27/19 Rx release potassium chloride 10 mEq 10 meq PO DAILY #30 tab 08/30/19 09/27/19 Rx tablet,extended release Natural Enzyme 1 dose PO BID 09/27/19 09/27/19 History ferrous gluconate 324 mg PO QID 09/27/19 09/27/19 History furosemide 80 mg PO BID 09/27/19 09/27/19 History Allergies Allergy/AdvReac Type Severity Reaction Status Date / Time linaclotide [From Linzess] Allergy Mild Verified 08/13/19 09:29 Past Med/Surg History Medical History Abdominal aortic aneurysm (AAA) without rupture (Chronic) Chronic back pain (Chronic) NSTEMI (non-ST elevated myocardial infarction) (Resolved) Surgical History History of bladder surgery (Resolved) S/P appendectomy (Resolved) S/P rotator cuff surgery (Resolved) Family History Father Myocardial infarction Other Diabetes Heart disease Hypertension Nephrolithiasis Social History Preferred Language: [place] Hearing Ability: Hard of Hearing marital status: current occupational status: retired Feels Safe at Home: Yes Smoking Status: Former smoker Review of Systems See HPI for pertinent positives & negatives. and A total of 10 systems reviewed and were otherwise negative Physical Exam Vital Signs Vital Signs - 24 hr 09/27/19 20:22 09/27/19 21:23 09/27/19 21:32 Temperature 37.4 C Temperature Source Oral Pulse Rate 96 H Pulse Rate [Right Finger] Pulse Rhythm Regular Pulse Strength Normal Respiratory Rate 28 H Respiratory Effort / Characteristics Spontaneous Labored Non-Labored Respiratory Depth Deep Normal Respiratory Pattern Regular Regular Blood Pressure 124/71 Blood Pressure [Right Arm] Blood Pressure Mean 88 Blood Pressure Mean [Right Arm] Blood Pressure Position Sitting Blood Pressure Position [Right Arm] Pulse Oximetry 84 L 95 Oxygen Delivery Method Room Air Nasal Cannula Nasal Cannula Oxygen Flow Rate 5 5 Sepsis Recent Fever Within 48 Hours No Sepsis Action Taken by Nursing No Action Required 09/27/19 21:50 09/27/19 22:06 09/27/19 22:47 Temperature Temperature Source Pulse Rate 84 Pulse Rate [Right Finger] 82 80 Pulse Rhythm Pulse Strength Respiratory Rate 20 20 20 Respiratory Effort / Characteristics Respiratory Depth Normal Normal Respiratory Pattern Blood Pressure Blood Pressure [Right Arm] 152/68 H Blood Pressure Mean Blood Pressure Mean [Right Arm] 96 Blood Pressure Position Blood Pressure Position [Right Arm] Lying Pulse Oximetry 94 96 94 Oxygen Delivery Method Nasal Cannula Nasal Cannula Nasal Cannula Oxygen Flow Rate 5 5 5 Sepsis Recent Fever Within 48 Hours Sepsis Action Taken by Nursing 09/27/19 23:54 Temperature Temperature Source Pulse Rate 76 Pulse Rate [Right Finger] Pulse Rhythm Pulse Strength Respiratory Rate 18 Respiratory Effort / Characteristics Respiratory Depth Respiratory Pattern Blood Pressure 139/60 Blood Pressure [Right Arm] Blood Pressure Mean Blood Pressure Mean [Right Arm] Blood Pressure Position Blood Pressure Position [Right Arm] Pulse Oximetry 93 Oxygen Delivery Method Nasal Cannula Oxygen Flow Rate 5 Sepsis Recent Fever Within 48 Hours Sepsis Action Taken by Nursing Constitutional: Vital signs reviewed. Eyes: Pupils are equal round reactive to light. Conjunctiva are noninjected. ENT: Pharynx is clear without erythema or exudate. Mucous membranes are moist. Neck supple without meningeal signs. Respiratory: Clear to auscultation bilaterally. Breath sounds are equal bilaterally. Cardiovascular: Bradycardic. Heart rate 52. Normal rhythm. GI: Soft, nondistended and nontender. Bowel sounds are present. Musculoskeletal: Mild lower extremity edema. No lower extremity tenderness. Integumentary: No cyanosis. Neurological: The patient is awake and alert. No focal deficits. Psychiatric: Normal affect. Course Course 2057: The patient was evaluated in room C7. A complete history and physical exam was performed. 2221: I let the patient know of his test results. The patient is agreeable for admission. 2223: I reviewed the patient's case with Dr. Ward, [facility] Hospitalist. He will evaluate the patient for further management. Administered Medications Piperacillin Sod/Tazobactam Sod (Zosyn) 4.5 gm in 120 mls @ 240 mls/hr IV NOW ONE Stop: 09/27/19 22:14 Last Infusion: 09/27/19 22:37 Dose: 0 mls/hr Documented by: [id number] Admin: 09/27/19 21:52 Dose: 240 mls/hr Documented by: [id number] Medical Decision Making Differential Diagnosis Differential diagnosis includes: unstable angina, MA, COPD exacerbation, PNA, dysthymia, electrolyte abnormality Medical Records Attestation: I reviewed the patient's medical records. I did perform a limited focused review of portions of the patient's old chart on the electronic medical record. The patient has had no recent pertinent visits to this hospital. Home Medications Current Medication List: was personally reviewed by me Laboratory Data Attestation: I reviewed the patient's lab results. Result diagrams: 09/27/19 21:25 09/27/19 21:25 Lab Results 09/27/19 09/27/19 09/27/19 Range/Units 21:25 21:25 21:54 WBC 9.51 (4.8-10.8) K/uL RBC 3.91 L (4.7-6.1) M/uL Hgb 10.4 L (14.0-18.0) g/dL Hct 34.0 L (42-52) % MCV 87.0 (80-100) fL MCH 26.6 (25-34) pg MCHC 30.6 L (32-36) g/dL RDW Std Deviation 56.2 H (36.4-46.3) fL RDW Coeff of Dl 17.6 H (11.5-14.5) % Plt Count 204 (130-400) K/uL MPV 10.2 (7.4-10.4) fL Immature Gran % (Auto) 0.2 % Neut % (Auto) 85.1 % Lymph % (Auto) 6.8 % [place] % (Auto) 7.4 % Eos % (Auto) 0.3 % Baso % (Auto) 0.2 % Immature Gran # (Auto) 0.02 (0.00-0.02) K/uL Neut # (Auto) 8.09 H (1.4-6.5) K/uL Lymph # (Auto) 0.65 L (1.2-3.4) K/uL [place] # (Auto) 0.70 H (0.11-0.59) K/uL Eos # (Auto) 0.03 (0-0.5) K/uL Baso # (Auto) 0.02 (0-0.2) K/uL Sodium 138 (136-145) mmol/L Potassium 3.9 (3.5-5.1) mmol/L Chloride 103 (98-107) mmol/L Carbon Dioxide 28 (21-32) mmol/L Anion Gap 7.0 (3-11) BUN 23 H (7-18) mg/dl Creatinine 1.45 H (0.6-1.4) mg/dl Est Cr Clr Drug Dosing 54.2 ml/min Est GFR ( Amer) 52.7 Est GFR (Non-Af Amer) 45.5 BUN/Creatinine Ratio 15.8 (10-20) Glucose 174 H (70-99) mg/dl Calcium 8.6 (8.5-10.1) mg/dl Magnesium 2.0 (1.8-2.4) mg/dl Total Bilirubin 0.3 (0.2-1) mg/dl AST 16 (15-37) U/L ALT 21 (12-78) U/L Alkaline Phosphatase 80 (45-117) U/L Troponin I 0.018 (0-0.045) ng/ml Total Protein 7.0 (6.4-8.2) gm/dl Albumin 2.8 L (3.4-5.0) gm/dl Globulin 4.2 H (2.5-4.0) gm/dl Albumin/Globulin Ratio 0.7 L (0.9-2) Influenza Type A (PCR) Neg for Influ A (Neg) Influenza Type B (PCR) Neg for Influ B (Neg) Imaging Data Radiologist's Impression: Radiology results as stated below per my review and th e radiologist's interpretation: XR chest 1V portable CLINICAL HISTORY: Chest Pain dyspnea COMPARISON STUDY: 10/07/2018 FINDINGS: Mild cardiomegaly. Prominent pulmonary vasculature. Possible superimposed density left pulmonary apex. IMPRESSION: 1. Congestive heart failure.. 2. Superimposed infiltrate left pulmonary apex. 3. The stability study should be repeated a later date to ensure resolution. ACT 112: Negative or not required by law. The above report was generated using voice recognition software. It may contain grammatical, syntax or spelling errors. Electronically signed by: Omar Suazo M.D. 09/27/2019 9:42 PM ECG Data Attestation: I personally reviewed and interpreted this ECG as follows: Indication: + bradycardia Rate (beats per minute): ventricular rate 52 Rhythm: + sinus bradycardia ECG [place]: + Left axis deviation ECG Findings: + PVCs and + Bigeminy Comparison ECG Date: from (10/07/18) Change: the following changes noted Additional Comments: sinus bradycardia with no bigeminy Blood Pressure Blood Pressure Findings: Elevated blood pressure Blood Pressure Disposition: further management by hospitalist [facility] Narrative I did evaluate the patient as noted above. The patient is presenting today because his home monitor is displaying bradycardia. He noted that his heart rate was in the 40s to 50s. He states he has been having chest pain for the past 3 days but has not had any since yesterday. He also complains of a productive cough as well as shortness of breath and clamminess. He has been requiring increased oxygen at home. Normally uses 4 L but had to increase it to 5. IV access was established. 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 I did order and personally review the patient's 12-lead EKG as described above. His twelve-lead EKG demonstrates bigeminy. His heart rate is 52. His blood pressure is stable. I did order and personally reviewed the images of the patient's chest x-ray as described above. He does have a left upper lobe pneumonia. I did order blood cultures. I did treat the patient with Zosyn IV. I did order and review the patient's blood work as noted in the electronic medical record. He is anemic. His creatinine is elevated. Influenza testing is negative. Troponin is negative. I did discuss the test results with patient. I did recommend hospitalization. I did discuss case with hospitalist and reports analysis manager. Impression & Plan Left upper lobe pneumonia, Bigeminy, Precordial chest pain, Anemia, Elevated serum creatinine, Bradycardia Discharge Plan Visit Data Chief Complaint: Bradycardia Stated Complaint: LOW PULSE ED Provider: Fermin Khan Discharge Problem: Left upper lobe pneumonia, Bigeminy, Precordial chest pain, Anemia, Elevated serum creatinine, Bradycardia Patient Disposition: Admitted As Inpatient Discharge Instructions Interventions: ED Discharge Assessment Last Done: 09/27/19 23:54 Forms Stand Alone Forms: My [facility] [employer] Prescriptions Prescriptions: No Action (DME) OneTouch Verio strip See Dose Instructions .ROUTE .MEDSUPPLY Qty: 100 RF: 3 potassium chloride 10 mEq tablet extended release 10 meq PO DAILY Qty: 30 RF: 11 finasteride 5 mg tablet 5 mg PO DAILY Qty: 90 RF: 3 albuterol sulfate 2.5 mg /3 mL (0.083 %) solution for nebulization 2.5 mg INH Q4H PRN (Reason: wheezing) RF: 0 nitroglycerin [Nitrostat] 0.4 mg tablet, sublingual 0.4 mg sublingual DIRECTED PRN (Reason: Chest Pain) Qty: 25 RF: 5 atorvastatin 10 mg tablet 10 mg PO HS Qty: 90 RF: 3 valsartan 80 mg tablet 80 mg PO DAILY Qty: 90 RF: 3 hydralazine 100 mg tablet 100 mg PO TID Qty: 270 RF: 3 isosorbide mononitrate 60 mg tablet extended release 24 hr 60 mg PO DAILY Qty: 90 RF: 3 metformin 500 mg tablet 1,000 mg PO BID Qty: 360 RF: 3 omeprazole 40 mg capsule,delayed release(DR/EC) 40 mg PO BID Qty: 180 RF: 3 Novolin 70/30 U-100 Insulin 100 unit/mL (70-30) suspension See Rx Instructions SUBCUT BID Qty: 30 RF: 3 aspirin 81 mg tablet,delayed release (DR/EC) 81 mg PO .qod RF: 0 allopurinol 100 mg tablet 200 mg PO DAILY Qty: 180 RF: 3 (DME) Oxygen Home Liters Per Minute See Dose Instructions .ROUTE .MEDSUPPLY Qty: 1 RF: 0 ProAir RespiClick 90 mcg/actuation aerosol powdr breath activated 1 - 2 inh INHALATION Q4H PRN (Reason: Cough or Tightness in Chest) Qty: 1 RF: 3 carvedilol 25 mg tablet 25 mg PO BID Qty: 180 RF: 3 PreserVision AREDS [id number],[id number] [id number] capsule 1 cap PO BID Qty: 180 RF: 3 acetaminophen 500 mg Tablet 1,000 mg PO Q8H PRN (Reason: Pain) RF: 0 furosemide 80 mg tablet 80 mg PO BID RF: 0 Natural Enzyme 1 dose PO BID RF: 0 ferrous gluconate 324 mg (38 mg iron) Tablet 324 mg PO QID RF: 0 Referrals Referrals: Enoch Boo MD [Primary Care Provider] - Discharge Problem: Left upper lobe pneumonia Qualifiers: Pneumonia type: due to unspecified organism Qualified Code(s): J18.9 - Pneumonia, unspecified organism Anemia Qualifiers: Anemia type: unspecified type Qualified Code(s): D64.9 - Anemia, unspecified The scribe's documentation has been prepared under my direction and personally reviewed by me in its entirety. I confirm that the note above accurately reflects all work, treatment, procedures, and medical decision making performed by me.
[2019-09-28] MEDS ORDERED: CARBOHYDRATES FOR HYPOGLYCEMIA PO PRN (00:21)
[2019-09-28] MEDS ORDERED: GLUCAGON FOR INJ 1 MG VIAL SQ PRN (00:21)
[2019-09-28] MEDS ORDERED: ONDANSETRON INJ 2 MG/ML 2 ML VIAL IV PRN (00:21)
[2019-09-28] MEDS ORDERED: ALBUTEROL 0.083% NEBU SOLN 3 ML VIAL NEB PRN (00:21)
[2019-09-28] MEDS ORDERED: ACETAMINOPHEN 325 MG TAB PO PRN (00:21)
[2019-09-28] MEDS ORDERED: NITROGLYCERIN SL 0.4 MG/TAB TAB SL PRN (00:21)
[2019-09-28] MEDS ORDERED: GLUCOSE 40% GEL 15 GM TUBE PO PRN (00:21)
[2019-09-28] MEDS ORDERED: DEXTROSE 50% 50 ML SYRINGE IV PRN (00:21)
[2019-09-28] MEDS ORDERED: GLUCOSE 10 TABS/TUBE PO PRN (00:21)
--- NOTE | 2019-09-28 01:36 | History & Physical Report ---
Date of Service This is a late entry for admission 09/27/2019. September 28, 2019 Assessment & Plan (1) Left upper lobe pneumonia: Admit tele IV Rocephin and IV Doxycycline coverage for CAP Supplemental oxygen DVT prophylaxis = SCDs and sub-q heparin. (2) Precordial chest pain: Serial trops. (3) Bradycardia: Cardiology consulted. Patient may need adjustment of Carvedilol. I will hold dose if HR <60. (4) Type 2 diabetes mellitus: Has had a recent decrease in daily Insulin usage due to hypoglycemia I ordered his current 70/30 dose of 55 Units BID. Sliding scale coverage for highs. Metformin held. (5) Chronic back pain: Patient requests being transported in wheelchair and sleeping in recliner as hospital beds exacerbate his low back pain. (6) Chronic obstructive pulmonary disease: Prn Albuterol nebs Continue Trelegy Ellipta I did not feel patient was having an exacerbation and therefore did not order steroids. (7) Gout: Continue allopurinol (8) GERD without esophagitis: Continue Omeprazole. (9) Chronic diastolic (congestive) heart failure: Continue Lasix 80mg BID. 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 (11) Hypertension: Continue hydralazine. Patient reports he stopped taking Valsartan. History of Present Illness 79 y/o male presented to the ED with symptoms of generalized weakness and productive cough. In addition, the patient reports having had episodes of chest pain over the previous 3 days. He noted today that his pulse ox monitor was reading a low HR in the 30's. Chest pain did not radiate, and was not associated with exertion. He is chronically on 4L nasal cannula oxygen, but had increased to 5L on the day of admission. No F/C, N/V/D, or increased edema. He tells me that although there is a history of NE on his chart, he does not recall ever being told that he had an NE. Primary Care Provider: Enoch Boo MD Allergies Allergy/AdvReac Type Severity Reaction Status Date / Time linaclotide [From Linzess] Allergy Mild Verified 08/13/19 09:29 Home Medications Home Medications Medication Instructions Recorded Confirmed Type acetaminophen 1,000 mg PO Q8H PRN 02/12/19 09/27/19 History Oxygen Home #1 ea 03/02/19 08/13/19 History albuterol sulfate 90 mcg/actuation 1 - 2 inh INHALATION Q4H PRN #1 ea 03/02/19 09/27/19 Rx breath activated powder inhaler carvedilol 25 mg tablet 25 mg PO BID #180 tab 03/02/19 09/27/19 Rx vitamins A,C,J-gayq-gkafpb 14,320 1 cap PO BID #180 cap 03/02/19 09/27/19 Rx unit-226 mg-200 unit capsule blood sugar diagnostic #100 ea 03/31/19 08/13/19 Rx allopurinol 100 mg tablet 200 mg PO DAILY #180 tab 04/19/19 09/27/19 Rx aspirin 81 mg tablet,delayed 81 mg PO .qod tab 04/19/19 09/27/19 History release insulin human U-100 NPH-regulr See Rx Instructions SUBCUT BID #30 04/19/19 09/27/19 Rx 70-30 mix 100 unit/mL subcutaneous ml susp albuterol sulfate 2.5 mg INH Q4H PRN ml 06/02/19 09/27/19 History atorvastatin 10 mg tablet 10 mg PO HS #90 tab 06/04/19 09/27/19 Rx nitroglycerin 0.4 mg sublingual 0.4 mg SUBLINGUAL DIRECTED PRN 06/04/19 09/27/19 Rx tablet #25 tab valsartan 80 mg tablet 80 mg PO DAILY #90 tab 06/04/19 09/27/19 Rx finasteride 5 mg tablet 5 mg PO DAILY #90 tab 07/08/19 09/27/19 Rx hydralazine 100 mg tablet 100 mg PO TID #270 tab 08/10/19 09/27/19 Rx isosorbide mononitrate 60 mg 60 mg PO DAILY #90 tab 08/10/19 09/27/19 Rx tablet,extended release 24 hr metformin 500 mg tablet 1,000 mg PO BID #360 tab 08/10/19 09/27/19 Rx omeprazole 40 mg capsule,delayed 40 mg PO BID #180 cap 08/10/19 09/27/19 Rx release potassium chloride 10 mEq 10 meq PO DAILY #30 tab 08/30/19 09/27/19 Rx tablet,extended release Natural Enzyme 1 dose PO BID 09/27/19 09/27/19 History ferrous gluconate 324 mg PO QID 09/27/19 09/27/19 History furosemide 80 mg PO BID 09/27/19 09/27/19 History Past Med/Surg History Medical History Abdominal aortic aneurysm (AAA) without rupture (Chronic) BPH with obstruction/lower urinary tract symptoms (Chronic) Chronic back pain (Chronic) Chronic diastolic (congestive) heart failure (Chronic) Chronic venous insufficiency GERD without esophagitis (Acute) Gout (Acute) Hyperlipidemia (Acute) Hypertension (Chronic) Morbid obesity (Acute) NSTEMI (non-ST elevated myocardial infarction) (Resolved) Peripheral neuropathy (Acute) Surgical History History of bladder surgery (Resolved) S/P appendectomy (Resolved) S/P rotator cuff surgery (Resolved) Family History Father Myocardial infarction Other Diabetes Heart disease Hypertension Nephrolithiasis Social History Preferred Language: [place] Rican Communication Ability: Effective Hearing Ability: Hard of Hearing 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 Beliefs That Will Affect Care: None marital status: Current Living Situation: Alone and Spouse current occupational status: retired Other Information That Helps Us Care for You: No Feels Safe at Home: Yes Safety Concerns: Feels Safe At This Time Smoking Status: Former smoker Smoking End Date: 2007 ; Hx Alcohol Use: No Hx Substance Use: No Review of Systems Review of Systems: All systems reviewed & are unremarkable except as noted in HPI & below Physical Exam Physical Exam: General- adult male, seated on side of bed, NAD Head- atraumatic Eyes- PERRL, EOMI, anicteric ENT- oropharynx clear Neck- supple, no JVD, no adenopathy, no thyromegaly. Lungs- Decreased breath sounds at the bases b/l. Diffuse rhonchi. Heart- regular rhythm; Palpable pulse in the 60's. no murmur, no gallop, no rub appreciated Abdomen- normal bowel sounds, soft, nontender. 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 Skin- warm & dry Results & Data Vital Signs (Past 12 Hours) Vital Signs Temp Pulse Pulse Pulse Resp BP BP 09/28/19 00:12 36.8 C 87 20 169/71 H 09/27/19 23:54 76 18 139/60 09/27/19 22:47 80 20 09/27/19 22:06 84 20 09/27/19 21:50 82 20 152/68 H 09/27/19 21:23 09/27/19 20:22 37.4 C 96 H 28 H 124/71 Pulse Ox 09/28/19 00:12 09/27/19 23:54 93 09/27/19 22:47 94 09/27/19 22:06 96 09/27/19 21:50 94 09/27/19 21:23 95 09/27/19 20:22 84 L Laboratory Results Laboratory Results WBC 9.51 K/uL (4.8-10.8) 09/27/19 21: RBC 3.91 M/uL (4.7-6.1) L 09/27/19 21:25 Hgb 10.4 g/dL (14.0-18.0) L 09/27/19 21: Hct 34.0 % (42-52) L 09/27/19 21: MCV 87.0 fL (80-100) 09/27/19 21:25 MCH 26.6 pg (25-34) 09/27/19 21: MCHC 30.6 g/dL (32-36) L 09/27/19 21:25 RDW Std Deviation 56.2 fL (36.4-46.3) H 09/27/19 21:25 RDW Coeff of Dl 17.6 % (11.5-14.5) H 09/27/19 21: Plt Count 204 K/uL (130-400) 09/27/19 21: MPV 10.2 fL (7.4-10.4) 09/27/19 21:25 Immature Gran % (Auto) 0.2 % 09/27/19: Neut % (Auto) 85.1 % 09/27/19: Lymph % (Auto) 6.8 % 09/27/19 21: [place] % (Auto) 7.4 % 09/27/19 21:25 Eos % (Auto) 0.3 % 09/27/19 21:25 Baso % (Auto) 0.2 % 09/27/19 21:25 Immature Gran # (Auto) 0.02 K/uL (0.00-0.02) 09/27/19 21:25 Neut # (Auto) 8.09 K/uL (1.4-6.5) H 09/27/19 21:25 Lymph # (Auto) 0.65 K/uL (1.2-3.4) L 09/27/19 21:25 [place] # (Auto) 0.70 K/uL (0.11-0.59) H 09/27/19 21:25 Eos # (Auto) 0.03 K/uL (0-0.5) 09/27/19 21: Baso # (Auto) 0.02 K/uL (0-0.2) 09/27/19 21:25 Sodium 138 mmol/L (136-145) 09/27/19 21:25 Potassium 3.9 mmol/L (3.5-5.1) 09/27/19 21:25 Chloride 103 mmol/L (98-107) 09/27/19 21:25 Carbon Dioxide 28 mmol/L (21-32) 09/27/19 21:25 Anion Gap 7.0 (3-11) 09/27/19 21:25 BUN 23 mg/dl (7-18) H 09/27/19 21:25 Creatinine 1.45 mg/dl (0.6-1.4) H 09/27/19 21:25 Est Cr Clr Drug Dosing 54.2 ml/min 09/27/19 21:25 Est GFR ( Amer) 52.7 09/27/19 21:25 Est GFR (Non-Af Amer) 45.5 09/27/19 21:25 BUN/Creatinine Ratio 15.8 (10-20) 09/27/19 21: Glucose 174 mg/dl (70-99) H 09/27/19 21:25 Calcium 8.6 mg/dl (8.5-10.1) 09/27/19: Magnesium 2.0 mg/dl (1.8-2.4) 09/27/19 21:25 Total Bilirubin 0.3 mg/dl (0.2-1) 09/27/19 21:25 AST 16 U/L (15-37) 09/27/19 21:25 ALT 21 U/L (12-78) 09/27/19 21:25 Alkaline Phosphatase 80 U/L (45-117) 09/27/19 21:25 Troponin I 0.018 ng/ml (0-0.045) 09/27/19 21:25 Total Protein 7.0 gm/dl (6.4-8.2) 09/27/19 21:25 Albumin 2.8 gm/dl (3.4-5.0) L 09/27/19 21:25 Globulin 4.2 gm/dl (2.5-4.0) H 09/27/19 21:25 Albumin/Globulin Ratio 0.7 (0.9-2) L 09/27/19 21:25 Influenza Type A (PCR) Neg for Influ A (Neg) 09/27/19 21:54 Influenza Type B (PCR) Neg for Influ B (Neg) 09/27/19 21:54 Diagnostic Findings [place], [place] [phone] XRay Report Patient: MOSES WASHINGTON EAdmit Date: 09/27/19 MR#: [id number]: [address] Acct ID:[id number]: [facility] Zip[facility] [place] [address] Age: 79Location: ED Sex: M Room/Bed: Att Phy:Diagnosis: LOW PULSE Charity Phy: Enoch Boo MDService Date: 09/27/19 Fam Phy:Interpreting Phy: Omar Suazo MD Admit Phy: Ordering Phy: Fermin Khan MD cc: ~ XR chest 1V portable CLINICAL HISTORY: Chest Pain dyspnea COMPARISON STUDY: 10/07/2018 FINDINGS: Mild cardiomegaly. Prominent pulmonary vasculature. Possible superimposed density left pulmonary apex. IMPRESSION: 1. Congestive heart failure.. 2. Superimposed infiltrate left pulmonary apex. 3. The stability study should be repeated a later date to ensure resolution. ACT 112: Negative or not required by law. The above report was generated using voice recognition software. It may contain grammatical, syntax or spelling errors. Electronically signed by: Omar Suazo M.D. 09/27/2019 9:42 PM Dictated: 09/27/19 2142 Code Status & VTE Plan VTE Prophylaxis Plan VTE Prophylaxis will be ordered: Yes PG Care Time/CCT Total # of Minutes Spent Total Time Spent: 55 Total Time Spent with Patient: Total time spent is greater than 50% in coordination of care (as documented) at patient's floor/unit and/or counseling patient: Coding Level of Care Code 53596 Initial Inpt Care Lvl 3 Diagnoses Left upper lobe pneumonia J18.9 Pneumonia type: due to unspecified organism Precordial chest pain R07.2 Bradycardia R00.1 Type 2 diabetes mellitus E11.9 Chronic back pain M54.9; G89.29 Chronic obstructive pulmonary disease J44.9 Gout M10.9 GERD without esophagitis K21.9 Chronic diastolic (congestive) heart failure I50.32 BPH with obstruction/lower urinary tract symptoms N40.1; N13.8 Hypertension I10 (1) Left upper lobe pneumonia Pneumonia type: due to unspecified organism Qualified Code(s): J18.9 - Pneumonia, unspecified organism
[2019-09-28] MEDS: DOXYCYCLINE HYCLATE 100 MG in DEXTROSE 5% 100 ML IV SCH ×2 (02:48→13:29)
[2019-09-28 05:53] LABS: Hematocrit (blood only) 33.7 % (42-52); Hemoglobin 10.6 g/dL (14.0-18.0); Mean Corpuscular Hemoglobin 27.2 pg (25-34); Mean Corpuscular Hgb Conc 31.5 g/dL (32-36); Mean Corpuscular Volume 86.4 fL (80-100); Mean Platelet Volume 10.2 fL (7.4-10.4); Platelet Count 182 K/uL (130-400); RDW Coefficient of Variation 17.7 % (11.5-14.5); RDW Standard Deviation 55.3 fL (36.4-46.3)
[2019-09-28 06:23] LABS: BUN Creatinine Ratio 20.2 (10-20); Calcium 8.7 mg/dl (8.5-10.1); Creatinine Clr Calc Pharmacy 73.8 ml/min; Est GFR (African American) 75.3; Est GFR (Non-African American) 64.9; Potassium 3.6 mmol/L (3.5-5.1)
[2019-09-28 06:28] LABS: Troponin I 0.016 ng/ml (0-0.045)
[2019-09-28] MEDS: cefTRIAXone SODIUM 2,000 MG in DEXTROSE 5% 50 ML IV SCH (07:29)
[2019-09-28] MEDS: HEPARIN SOD 5,000 UNIT/0.5 ML VIAL SQ SCH ×2 (07:54→20:31)
[2019-09-28] MEDS: FINASTERIDE 5 MG TAB PO SCH (07:55)
[2019-09-28] MEDS: HydrALAZINE TAB 50 MG TAB PO SCH ×3 (07:56→20:31)
[2019-09-28] MEDS: ISOSORBIDE MONO EXTENDED REL 60 MG TABCR PO SCH (07:56)
[2019-09-28] MEDS: FUROSEMIDE 80 MG TAB PO SCH ×2 (07:57→20:32)
[2019-09-28] MEDS: carvediloL 25 MG TAB PO SCH ×2 (07:58→20:31)
[2019-09-28] MEDS: POTASSIUM CHLORIDE 10 MEQ TABCR PO SCH (08:00)
[2019-09-28] MEDS: INSULIN ASPART 100 UNITS/ML 3 ML PEN SC SCH ×4 (08:00→20:32)
[2019-09-28] MEDS: INSULIN HUMAN 70% NPH/30% REGULAR SC SCH ×2 (08:01→17:24)
[2019-09-28] MEDS: NON-FORMULARY MEDICATION (Fluticasone-Umeclidin-Vilanter [Trelegy Ellipta] 1 PUFFS) INH SCH (08:23)
[2019-09-28] MEDS: PANTOprazole 40 MG TAB PO SCH ×2 (08:32→20:32)
--- NOTE | 2019-09-28 12:08 | Cardiology Consultation ---
Date of Consultation September 28, 2019 Assessment & Plan (1) Left upper lobe pneumonia: 2. Atypical chest pain 3. Reported bradycardia 4. Frequent ectopy, bigeminy 5. Chronic diastolic heart failure 6. Presumed coronary artery disease after NSTEMI 04/2018, cath declined 7. Type 2 diabetes 8. Hypertension 9. Chronic venous insufficiency and lower extremity edema 10. Prior AAA post repair Cardiology consulted in the setting episodic, atypical chest discomfort over the last week in the setting of productive cough, fevers, increased O2 requirement and chest x-ray consistent with pneumonia. Initial EKG without dynamic ST changes and troponin negative x2. Suspicion that chest pain represents ACS is low. Additional risk stratification could be considered as an outpatient if chest symptoms persist once pneumonia symptoms resolved. Patient's other cardiac concern is regarding low heart rates on home pulse ox device. No significant bradycardia since admission. Has had frequent ectopy and periods of bigeminy. Suspect home heart rates may be inaccurate in the setting of ectopy. For now we will continue to monitor on telemetry on home carvedilol 25 mg twice daily. Otherwise minimal congestion on exam and do not feel current presentation secondary to acute heart failure exacerbation. Agree with continuing home p.o. diuretics. Dr. Maradiaga to resume cardiac care tomorrow. Thank you for allowing us to participate in the care of this patient. Please contact with any questions. History of Present Illness Attending Physician: Lynette Orozco MD History of Present Illness Mr. Pfeiffer is a pleasant 79-year-old man with a history of chronic diastolic heart failure, type 2 diabetes, hypertension, dyslipidemia, AAA status post repair, COPD, SOPHIA on CPAP, lower extremity edema in the setting of chronic venous insufficiency post bilateral GSV ablation. Patient met yesterday with left lower lobe pneumonia. Cardiology consulted for reported bradycardia and intermittent chest pain at home. Patient is followed by Dr. Maradiaga as an outpatient. Known to me from prior visits for management of his venous insufficiency. He reports episodes of intermittent chest pain occurring over the last week or so. These episodes can occur at any time. Describes as sharp pain lasting seconds to minutes. States he had similar pain in the past which was discussed with his PCP. During this time is also noted subjective fever and chills, productive cough and generalized fatigue. Denies orthopnea or increased lower extremity swelling. Continues furosemide 80 mg BID. Denies any palpitations. Has noted though that on his home pulse ox his heart rate has been reading intermittently as low as the 30s. Had increased his home O2 from 4 L up to 5L. Since arrival afebrile, intermittently hypotensive. Heart rates documented as low as 55 but primarily in the 70s to 80s on telemetry. Initial EKG showing sinus rhythm with bigeminy. LVH with no significant ST changes. Troponin negative x2. Chest x-ray with questionable pulmonary vascular congestion and left upper lobe pneumonia. Started on Zosyn, now on ceftriaxone and doxy. Continued on home carvedilol, Imdur, p.o. Lasix. Recent cardiac studies: Nuclear stress 12/31/2016: No ischemia or infarct. EF 50%. Normal wall motion. Echo 04/17/2018: Borderline dilated LV with normal systolic function. EF 55- 60%. Mild LVH. Type 1 diastolic dysfunction. Normal wall motion. Mild TR. Allergies Allergy/AdvReac Type Severity Reaction Status Date / Time linaclotide [From Avaamo] Allergy Mild Verified 08/13/19 09:29 Home Medications Home Medications Medication Instructions Recorded Confirmed Type acetaminophen 1,000 mg PO Q8H PRN 02/12/19 09/27/19 History Oxygen Home #1 ea 03/02/19 08/13/19 History albuterol sulfate 90 mcg/actuation 1 - 2 inh INHALATION Q4H PRN #1 ea 03/02/19 09/27/19 Rx breath activated powder inhaler carvedilol 25 mg tablet 25 mg PO BID #180 tab 03/02/19 09/27/19 Rx vitamins A,C,E-tetn-xiivya 14,320 1 cap PO BID #180 cap 03/02/19 09/27/19 Rx unit-226 mg-200 unit capsule blood sugar diagnostic #100 ea 03/31/19 08/13/19 Rx allopurinol 100 mg tablet 200 mg PO DAILY #180 tab 04/19/19 09/27/19 Rx aspirin 81 mg tablet,delayed 81 mg PO .qod tab 04/19/19 09/27/19 History release insulin human U-100 NPH-regulr See Rx Instructions SUBCUT BID #30 04/19/19 09/27/19 Rx 70-30 mix 100 unit/mL subcutaneous ml susp albuterol sulfate 2.5 mg INH Q4H PRN ml 06/02/19 09/27/19 History atorvastatin 10 mg tablet 10 mg PO HS #90 tab 06/04/19 09/27/19 Rx nitroglycerin 0.4 mg sublingual 0.4 mg SUBLINGUAL DIRECTED PRN 06/04/19 09/27/19 Rx tablet #25 tab valsartan 80 mg tablet 80 mg PO DAILY #90 tab 06/04/19 09/27/19 Rx finasteride 5 mg tablet 5 mg PO DAILY #90 tab 07/08/19 09/27/19 Rx hydralazine 100 mg tablet 100 mg PO TID #270 tab 08/10/19 09/27/19 Rx isosorbide mononitrate 60 mg 60 mg PO DAILY #90 tab 08/10/19 09/27/19 Rx tablet,extended release 24 hr metformin 500 mg tablet 1,000 mg PO BID #360 tab 08/10/19 09/27/19 Rx omeprazole 40 mg capsule,delayed 40 mg PO BID #180 cap 08/10/19 09/27/19 Rx release potassium chloride 10 mEq 10 meq PO DAILY #30 tab 08/30/19 09/27/19 Rx tablet,extended release Natural Enzyme 1 dose PO BID 09/27/19 09/27/19 History ferrous gluconate 324 mg PO QID 09/27/19 09/27/19 History furosemide 80 mg PO BID 09/27/19 09/27/19 History Patient History Medical History Abdominal aortic aneurysm (AAA) without rupture (Chronic) BPH with obstruction/lower urinary tract symptoms (Chronic) Chronic back pain (Chronic) Chronic diastolic (congestive) heart failure (Chronic) Chronic venous insufficiency GERD without esophagitis (Acute) Gout (Acute) Hyperlipidemia (Acute) Hypertension (Chronic) Morbid obesity (Acute) NSTEMI (non-ST elevated myocardial infarction) (Resolved) Peripheral neuropathy (Acute) Surgical History History of bladder surgery (Resolved) S/P appendectomy (Resolved) S/P rotator cuff surgery (Resolved) Family History Father Myocardial infarction Other Diabetes Heart disease Hypertension Nephrolithiasis Social History Preferred Language: Belarusian Communication Ability: Effective Hearing Ability: Hard of Hearing 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 Beliefs That Will Affect Care: None marital status: Current Living Situation: Alone and Spouse current occupational status: retired Other Information That Helps Us Care for You: No Feels Safe at Home: Yes Safety Concerns: Feels Safe At This Time Smoking Status: Former smoker Smoking End Date: 2007 ; Hx Alcohol Use: No Hx Substance Use: No Review of Systems Review of Systems: All systems reviewed & are unremarkable except as noted in HPI & below Physical Exam Physical Exam: General: Mildly tachypneic, able to carry on conversation, nasal cannula in place Eyes: Sclerae anicteric, extraocular movements intact HENT: Oropharynx clear mucous membranes moist Neck: Difficult to assess JVD Lungs: Clear except for scant crackles at right base Cardiac: Regular rate occasional ectopy, no murmurs Vascular: 2+ radial,. Vascular stockings in place. Minimal lower extremity edema Abdomen: Soft, nontender Extremities: Well perfused Skin: No rashes or lesions. Neuro: Nonfocal Psych: Alert orient x3, normal affect and mood Results & Data Vital Signs (Past 12 Hours) Vital Signs Temp Pulse Resp BP Pulse Ox 09/28/19 11:19 97.7 F 111 H 22 152/66 H 90 09/28/19 07:11 98.1 F 55 L 22 188/80 H 92 09/28/19 03:19 98.4 F 102 H 16 185/72 H 90 09/28/19 00:12 98.2 F 87 20 169/71 H PG Care Time/CCT Total # of Minutes Spent Total Time Spent with Patient: Total time spent is greater than 50% in coordination of care (as documented) at patient's floor/unit and/or counseling patient: Coding Level of Care Code 86212 Inpt Consult Level 4 Diagnoses Left upper lobe pneumonia J18.9 Pneumonia type: due to unspecified organism (1) Left upper lobe pneumonia Pneumonia type: due to unspecified organism Qualified Code(s): J18.9 - Pneumonia, unspecified organism
--- NOTE | 2019-09-28 20:41 | Hospitalist Progress Note ---
Date of Service September 28, 2019 Assessment & Plan (1) Left upper lobe pneumonia: Presented with cough and shortness of breath, left upper lobe pneumonia on chest x-ray Clinically improving Continue IV Rocephin and IV Doxycycline coverage for CAP convert to p.o. upon discharge likely tomorrow Continue supplemental oxygen and wean down to home 4 L as able to (2) Precordial chest pain: Had some substernal chest pressure that was vague, troponins are serially 0.016/0.018 No concern for ACS Cardiology consult appreciated Does not need further work-up at this time but will discuss with cardiology (3) Bradycardia: Cardiology consulted. Had frequent bigeminy on ECG which is likely pulse deficit as he was using his pulse oximeter at home and it was showing bradycardia in the 30s to 40s but really his heart rate here is in the 80s Okay to continue carvedilol Follow on telemetry May need Holter monitor as outpatient (4) Type 2 diabetes mellitus: Has had a recent decrease in daily Insulin usage due to hypoglycemia -Continue 70/30 dose of 55 Units BID. Sliding scale coverage for highs. Metformin held. (5) Chronic back pain: Patient requests being transported in wheelchair and sleeping in recliner as hospital beds exacerbate his low back pain. (6) Chronic obstructive pulmonary disease: No acute exacerbation Prn Albuterol nebs Continue Trelegy Ellipta No steroids necessary (7) Gout: Continue allopurinol (8) GERD without esophagitis: Continue Omeprazole. (9) Chronic diastolic (congestive) heart failure: Euvolemic -Continue Lasix 80mg BID. 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 (11) Hypertension: Continue hydralazine. Patient reports he stopped taking Valsartan. -Continue Coreg Continue isosorbide (12) Obstructive sleep apnea (adult) (pediatric): Ordered CPAP 9 cm H2O nightly (13) DVT prophylaxis: Heparin SQ Disposition-remain on telemetry overnight, patient anxious for discharge possibly tomorrow Subjective Patient ready feeling much better, no further central chest pain. Still with cough. 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 No other complaints at this time. He did not sleep well last night but thinks because he did not have his CPAP. Telemetry with normal sinus rhythm and PACs Review of Systems Review of Systems: All systems reviewed & are unremarkable except as noted in HPI & below Physical Exam Constitutional: WD/WN, vitals as above + morbidly obese Eyes: + anicteric sclerae Neck: trachea midline, no thyromegaly Respiratory: normal respiratory effort Auscultation: + diminished lung sounds (Left upper lung field) and + rhonchi (Left upper lung field); no crackles and no wheezes Cardiovascular: Rate/Rhythm: regular rate and regular rhythm (With frequent ectopy) Extremities: + edema (1+ chronic edema in the legs) Chest (Breasts): Chest: normal inspection of chest Gastrointestinal (Abdomen): normal bowel sounds, soft, nontender, no hepatosplenomegaly Musculoskeletal: Extremities: extremities normal to inspection; no cyanosis and no clubbing Skin: no rashes, warm and dry Neurologic: moves all extremities and awake; no focal motor deficits Psychiatric: A+Ox3, euthymic affect Lymphatic: no lymphedema Results & Data Vital Signs (Past 12 Hours) Vital Signs Temp Pulse Pulse Resp BP Pulse Ox 09/28/19 19:22 37.0 C 66 20 139/64 98 09/28/19 15:46 84 09/28/19 15:26 36.8 C 110 H 18 143/68 H 96 09/28/19 11:19 36.5 C 111 H 22 152/66 H 90 Laboratory Results Labs reviewed PG Care Time/CCT Total # of Minutes Spent Total Time Spent with Patient: Total time spent is greater than 50% in coordination of care (as documented) at patient's floor/unit and/or counseling patient: Coding Level of Care Code 76691 Subseq Hosp Care Lvl 3 Diagnoses Left upper lobe pneumonia J18.9 Pneumonia type: due to unspecified organism Precordial chest pain R07.2 Bradycardia R00.1 Type 2 diabetes mellitus E11.9 Chronic back pain M54.9; G89.29 Chronic obstructive pulmonary disease J44.9 Gout M10.9 GERD without esophagitis K21.9 Chronic diastolic (congestive) heart failure I50.32 BPH with obstruction/lower urinary tract symptoms N40.1; N13.8 Hypertension I10 Obstructive sleep apnea (adult) (pediatric) G47.33 DVT prophylaxis Z29.9 (1) Left upper lobe pneumonia Pneumonia type: due to unspecified organism Qualified Code(s): J18.9 - Pneumonia, unspecified organism
[2019-09-29] MEDS: DOXYCYCLINE HYCLATE 100 MG in DEXTROSE 5% 100 ML IV SCH (01:35)
[2019-09-29 06:20] LABS: Hematocrit (blood only) 32.5 % (42-52); Mean Corpuscular Hemoglobin 26.8 pg (25-34); Mean Corpuscular Hgb Conc 30.8 g/dL (32-36); Mean Corpuscular Volume 87.1 fL (80-100); Mean Platelet Volume 9.9 fL (7.4-10.4); Platelet Count 184 K/uL (130-400); RDW Coefficient of Variation 17.6 % (11.5-14.5); Red Blood Count 3.73 M/uL (4.7-6.1); White Blood Count 6.69 K/uL (4.8-10.8)
[2019-09-29 06:42] LABS: BUN Creatinine Ratio 18.3 (10-20); Calcium 8.8 mg/dl (8.5-10.1); Creatinine Clr Calc Pharmacy 67.7 ml/min; Est GFR (African American) 67.6; Est GFR (Non-African American) 58.3; Potassium 3.7 mmol/L (3.5-5.1)
[2019-09-29 07:16] VITALS: O2SAT 92
[2019-09-29] MEDS: INSULIN ASPART 100 UNITS/ML 3 ML PEN SC SCH ×2 (07:43→12:12)
[2019-09-29] MEDS: cefTRIAXone SODIUM 2,000 MG in DEXTROSE 5% 50 ML IV SCH (07:43)
[2019-09-29] MEDS: HEPARIN SOD 5,000 UNIT/0.5 ML VIAL SQ SCH (07:44)
[2019-09-29] MEDS: INSULIN HUMAN 70% NPH/30% REGULAR SC SCH (07:44)
[2019-09-29] MEDS: FINASTERIDE 5 MG TAB PO SCH (07:45)
[2019-09-29] MEDS: FUROSEMIDE 80 MG TAB PO SCH (07:45)
[2019-09-29] MEDS: PANTOprazole 40 MG TAB PO SCH (07:45)
[2019-09-29] MEDS: POTASSIUM CHLORIDE 10 MEQ TABCR PO SCH (07:45)
[2019-09-29] MEDS: carvediloL 25 MG TAB PO SCH (07:45)
[2019-09-29] MEDS: ISOSORBIDE MONO EXTENDED REL 60 MG TABCR PO SCH (07:45)
[2019-09-29] MEDS: HydrALAZINE TAB 50 MG TAB PO SCH (07:46)
[2019-09-29] MEDS: NON-FORMULARY MEDICATION (Fluticasone-Umeclidin-Vilanter [Trelegy Ellipta] 1 PUFFS) INH SCH (07:47)
--- NOTE | 2019-09-29 09:07 | Cardiology Progress Note ---
Date of Service September 29, 2019 Assessment & Plan (1) Bradycardia: (2) Chronic diastolic (congestive) heart failure: (3) CAD (coronary artery disease): (4) Hypertension: (5) Left upper lobe pneumonia: (6) Chest pain: ASSESSMENT/PLAN: 1. Bradycardia: Telemetry reviewed. Bradycardia was reported based on his pulse oximeter, which may have not been identifying his ectopy which is noted on telemetry. Agree with Dr. Jackson from initial consultation to continue with home dose of carvedilol. This was discussed with Kentrell in detail. He was agreeable. We discussed potentially checking an outpatient monitor when he is recovered from his pneumonia. 2. Chronic diastolic CHF: He appears compensated. Continue home dose of diuretics. 3. CAD: Treated for suspected CAD as an outpatient given elevated troponins in the past with symptoms concerning for angina in April of 2018. He declined cardiac catheterization at that time, but inquires about cardiac catheterization today. There is no indication for urgent cardiac catheterization. Recommend that he recover from pneumonia and we will reassess as an outpatient. He has been asymptomatic with medical therapy since 2018 until having chest pain with this recent pneumonia. Continue beta-andrew and nitrate therapy. He had been on calcium channel andrew, amlodipine, but he states that he asked that this be discontinued when he was recently seen by Dr. Boo. If he is having recurrent chest pain and there is concern for angina, Calcium channel andrew may have been offering antianginal relief. We will continue to discuss as an outpatient. No angina currently. 4. Hypertension: Blood pressure has mostly been elevated while here. Titrate medications as appropriate. He recently discontinued amlodipine as an outpatient. He also had reported that he is no longer taking ARB therapy. 5. Chest pain: This occurred while he was becoming ill with his pneumonia. We will reassess as noted above. No definite angina. 6. Pneumonia: As per primary service. He feels much better. 7. Disposition: From a cardiac perspective, he can be discharged home. Will defer treatment otherwise to hospitalist service, Dr. Orozco. She was called earlier this morning after evaluating Mr. Pfeiffer and patient care discussed with her. Follow-up as scheduled with me as an outpatient. Subjective He states that he feels much better today. He wants to go home. He denies chest pain, shortness of breath, syncope, near-syncope, palpitations, or edema. He admits that he was having some chest discomfort prior to coming into the hospital but feels much better now that he has been treated for pneumonia. He did have some concerns that he would like to discuss at his next appointment which is scheduled for next week. He would like discuss his chest pain and if he needs a cardiac catheterization. He would also like to discuss bradycardia which he noted on his pulse oximeter prior to hospitalization. He was alone in his hospital room. He was seen earlier this morning at approximately 8:15 a.m.. Review of systems: As above. Physical Exam Physical Exam: Gen.: No acute distress. Alert and oriented. HEENT: Anicteric sclera. Neck: Thick neck. Cardiac: Regular. Normal S1-S2. No murmurs, rubs, or gallops. Pulmonary: Clear to auscultation bilaterally without wheezes, rales, or rhonchi. Abdomen: Soft, nontender, nondistended, with normoactive bowel sounds. No bruits noted. Extremities: Trace lower extremity edema. No cyanosis. Psychiatric: Affect appears appropriate. Results & Data Vital Signs (Past 12 Hours) Vital Signs Temp Pulse Pulse Resp BP Pulse Ox 09/29/19 08:00 70 09/29/19 07:16 36.3 C L 74 20 163/99 H 92 09/29/19 03:43 72 20 90 09/29/19 03:42 36.6 C 71 16 164/71 H 95 09/29/19 00:30 73 09/28/19 23:29 65 20 95 09/28/19 23:28 37.1 C 75 20 136/67 93 Intake & Output 09/27/19 09/28/19 09/29/19 09/30/19 06:59 06:59 06:59 06:59 Intake Total 470 / 470 1060 / 1060 70 / 70 Balance 470 / 470 1060 / 1060 70 / Weight 135.9 kg 136.6 kg Laboratory Results Laboratory Results - last 24 hr 09/28/19 09/28/19 09/28/19 11:12 12:56 16:22 WBC RBC Hgb Hct MCV MCH MCHC RDW Std Deviation RDW Coeff of Dl Plt Count MPV Sodium Potassium Chloride Carbon Dioxide Anion Gap BUN Creatinine Est Cr Clr Drug Dosing Est GFR ( Amer) Est GFR (Non-Af Amer) BUN/Creatinine Ratio Glucose POC Glucose 169 H 151 H Calcium Troponin I 0.018 09/28/19 09/29/19 09/29/19 20:13 05:37 05:37 WBC 6.69 RBC 3.73 L Hgb 10.0 L Hct 32.5 L MCV 87.1 MCH 26.8 MCHC 30.8 L RDW Std Deviation 57.0 H RDW Coeff of Dl 17.6 H Plt Count 184 MPV 9.9 Sodium 138 Potassium 3.7 Chloride 103 Carbon Dioxide 31 Anion Gap 4.0 BUN 22 H Creatinine 1.18 Est Cr Clr Drug Dosing 67.7 Est GFR ( Amer) 67.6 Est GFR (Non-Af Amer) 58.3 BUN/Creatinine Ratio 18.3 Glucose 153 H POC Glucose 188 H Calcium 8.8 Troponin I 09/29/19 07:11 WBC RBC Hgb Hct MCV MCH MCHC RDW Std Deviation RDW Coeff of Dl Plt Count MPV Sodium Potassium Chloride Carbon Dioxide Anion Gap BUN Creatinine Est Cr Clr Drug Dosing Est GFR ( Amer) Est GFR (Non-Af Amer) BUN/Creatinine Ratio Glucose POC Glucose 135 H Calcium Troponin I Diagnostic Findings Telemetry personally reviewed: Sinus rhythm. PACs. Short runs of nonsustained atrial tachycardia. Medications Administered Current Inpatient Medications Acetaminophen (Tylenol) 650 mg PO Q4H PRN PRN Reason: mild pain or fever Stop: 10/28/19 00:20 Albuterol (Ventolin 0.083% 2.5mg/3ml) 2.5 mg NEB Q4H PRN PRN Reason: Shortness Of Breath Or Wheezing Stop: 10/28/19 00:20 Carvedilol (Coreg) 25 mg PO BID [facility] Stop: 10/28/19 08:59 Last Admin: 09/29/19 07:45 Dose: 25 mg Documented by: Dextrose (Dextrose 50%) 25 - 50 ml IV UD PRN; Protocol PRN Reason: Hypoglycemia Protocol Stop: 10/28/19 00:20 Finasteride (Proscar) 5 mg PO DAILY [facility] Stop: 10/28/19 08:59 Last Admin: 09/29/19 07:45 Dose: 5 mg Documented by: Furosemide (Lasix) 80 mg PO BID [facility] Stop: 10/28/19 08:59 Last Admin: 09/29/19 07:45 Dose: 80 mg Documented by: Glucagon (Glucagen) 1 mg SQ UD PRN; Protocol PRN Reason: Hypoglycemia Protocol Stop: 10/28/19 00:20 Glucose (Dex4 Glucose) 4 - 8 tabs PO UD PRN; Protocol PRN Reason: Hypoglycemia Protocol Stop: 10/28/19 00:20 Glucose (Glucose 40%) 15 - 30 gm PO UD PRN; Protocol PRN Reason: Hypoglycemia Protocol Stop: 10/28/19 00:20 Heparin Sodium (Porcine) (Heparin Sodium (Porcine)) 5,000 units SQ Q12H [facility] Stop: 10/28/19 08:59 Last Admin: 09/29/19 07:44 Dose: 5,000 units Documented by: Hydralazine HCl (Apresoline) 100 mg PO TID [facility] Stop: 10/28/19 08:59 Last Admin: 09/29/19 07:46 Dose: 100 mg Documented by: Doxycycline Hyclate 100 mg/ (Dextrose) 110 mls @ 50 mls/hr IV Q12H [facility] Stop: 10/05/19 01:59 Last Infusion: 09/29/19 04:22 Dose: Infused Documented by: Ceftriaxone Sodium 2,000 mg/ (Dextrose) 70 mls @ 100 mls/hr IV Q24H [facility]; Protocol Stop: 10/05/19 06:59 Last Infusion: 09/29/19 08:39 Dose: Infused Documented by: Insulin Aspart (Novolog Flexpen) 0 units SC ACHS [facility] Stop: 10/28/19 07:29 Last Admin: 09/29/19 07:43 Dose: Not Given Documented by: Insulin Human Isoph/Insulin Regular (Novolin 70/30 Regular) 55 units SC BIDM [facility] Stop: 10/28/19 07:59 Last Admin: 09/29/19 07:44 Dose: 55 units Documented by: Isosorbide Mononitrate (Imdur Extended Rel) 60 mg PO DAILY [facility] Stop: 10/28/19 08:59 Last Admin: 09/29/19 07:45 Dose: 60 mg Documented by: Miscellaneous (Carbohydrates For Hypoglycemia) 15 - 30 gm PO UD PRN PRN Reason: Hypoglycemia Protocol Stop: 10/28/19 00:20 Nitroglycerin (Nitrostat) 0.4 mg SL PRN PRN PRN Reason: Chest Pain Stop: 10/28/19 00:20 Non-Formulary Medication (Holrgbdhdkh-[id number]-Ugwwumpl [Trelegy Ellipta]) 1 puffs INH DAILY [facility] Stop: 10/28/19 08:59 Last Admin: 09/29/19 07:47 Dose: Not Given Documented by: Ondansetron HCl (Zofran) 4 mg IV Q6H PRN PRN Reason: nausea or vomiting Stop: 10/28/19 00:20 Pantoprazole Sodium (Protonix) 40 mg PO BID [facility] Stop: 10/28/19 08:59 Last Admin: 09/29/19 07:45 Dose: 40 mg Documented by: Potassium Chloride (Klor-Con M10) 10 meq PO DAILY [facility] Stop: 10/28/19 08:59 Last Admin: 09/29/19 07:45 Dose: 10 meq Documented by: PG Care Time/CCT Total # of Minutes Spent Total Time Spent with Patient: Total time spent is greater than 50% in coordination of care (as documented) at patient's floor/unit and/or counseling patient: Coding Level of Care Code 37151 Subseq Hosp Care Lvl 3 Diagnoses Bradycardia R00.1 Chronic diastolic (congestive) heart failure I50.32 CAD (coronary artery disease) I25.10 Hypertension I10 Left upper lobe pneumonia J18.9 Pneumonia type: due to unspecified organism Chest pain R07.9 (1) Left upper lobe pneumonia Pneumonia type: due to unspecified organism Qualified Code(s): J18.9 - Pneumonia, unspecified organism
[2019-09-29 10:55] VITALS: BP 152/59; TEMP 97.5
[2019-09-29 11:33] VITALS: PULSE 80
--- NOTE | 2019-09-29 11:37 | Discharge Summary ---
Date of Service September 29, 2019 Admission HPI Per Admitting Provider 79 y/o male presented to the ED with symptoms of generalized weakness and productive cough. In addition, the patient reports having had episodes of chest pain over the previous 3 days. He noted today that his pulse ox monitor was reading a low HR in the 30's. Chest pain did not radiate, and was not associated with exertion. He is chronically on 4L nasal cannula oxygen, but had increased to 5L on the day of admission. No F/C, N/V/D, or increased edema. He tells me that although there is a history of AL on his chart, he does not recall ever being told that he had an AL. Principal Diagnosis Pneumonia, Chest pain Discharge Exam Constitutional WD/WN, vitals as above + morbidly obese Eyes + anicteric sclerae Neck trachea midline, no thyromegaly Respiratory normal respiratory effort, lungs clear to auscultation Cardiovascular Rate/Rhythm: regular rate and regular rhythm (With frequent ectopy) Extremities: + edema (1+ chronic edema in the legs) Chest (Breasts) Chest: normal inspection of chest Gastrointestinal (Abdomen) normal bowel sounds, soft, nontender, no hepatosplenomegaly Musculoskeletal Extremities: extremities normal to inspection; no cyanosis and no clubbing Skin no rashes, warm and dry Neurologic moves all extremities and awake; no focal motor deficits Psychiatric A+Ox3, euthymic affect Lymphatic no lymphedema Discharge Data Allergies Allergy/AdvReac Type Severity Reaction Status Date / Time linaclotide [From Linzess] Allergy Mild Verified 08/13/19 09:29 Consultations 09/27/19 22:23 ED Decision to Admit Stat 09/28/19 00:21 Consult Cardiology Routine Ordered Studies CXR Hospital Course (1) Left upper lobe pneumonia: Presented with cough and shortness of breath, left upper lobe pneumonia on chest x-ray Clinically improved Received IV Rocephin and IV Doxycycline coverage for CAP convert to p.o. upon discharge with po doxy and cefdinir x 5 more days Continue supplemental oxygen at home 4 L Follow CXR to resolution in 3-4 weeks (2) Precordial chest pain: Had some substernal chest pressure that was vague, troponins are serially 0.016/0.018 ECG without ischemia, but with bigeminy No concern for ACS Cardiology consult appreciated Does not need further work-up at this time (3) Bradycardia: Cardiology consulted. Had frequent bigeminy on ECG which is likely pulse deficit as he was using his pulse oximeter at home and it was showing bradycardia in the 30s to 40s but really his heart rate here is in the 80s Okay to continue carvedilol May need Holter monitor as outpatient F/u with Cardio planned (4) Type 2 diabetes mellitus: Has had a recent decrease in daily Insulin usage due to hypoglycemia -Continue 70/30 dose of 55 Units BID. Sliding scale coverage for highs. Metformin held but can restart on dc (5) Chronic back pain: Patient requests being transported in wheelchair and sleeping in recliner as hospital beds exacerbate his low back pain. (6) Chronic obstructive pulmonary disease: No acute exacerbation Prn Albuterol nebs Continue Trelegy Ellipta No steroids necessary (7) Gout: Continue allopurinol (8) GERD without esophagitis: Continue Omeprazole. (9) Chronic diastolic (congestive) heart failure: Euvolemic -Continue Lasix 80mg BID. 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 (11) Hypertension: Continue hydralazine. Patient reports he stopped taking Valsartan. -Continue Coreg Continue isosorbide (12) Obstructive sleep apnea (adult) (pediatric): Ordered CPAP 9 cm H2O nightly (13) Chronic respiratory failure with hypoxia: Acute and chronic respiratory failure with hypoxia Needed more O2 than usual on admission, now weaned down with treatment of PNA (14) DVT prophylaxis: Heparin SQ Disposition-stable for dc to home Total Time Total Time Spent Total Time Spent (In Minutes): 35 min Total Time Includes: Examination of the Patient, Discharge Planning, Medication Reconciliation and Communication With Other Providers (Cardiology) Discharge Plan Discharge Items Patient Disposition: Home - Self-Care Reason For Visit: PNEUMONIA, LEFT; CHEST PAIN Discharge Diagnosis: Pneumonia, chest pain Condition on Discharge: Fair Activity: Resume your previous activity Non-emergency contact: Primary Care Provider and Napper Grinder Call non-emergency contact if: you have any medication questions, your symptoms worsen, your pain is not controlled, your pain is worsening, your pain is unusual for you, your pain is concerning for you, you have a fever and your temperature is above 101 Follow-up/Referrals: Enoch Boo MD [Primary Care Provider] - Diet: Carb Consistent or DM2 and Low Sodium (2gm) Addtl Attending Provider Instructions: Finish out the antibiotics as prescribed for your pneumonia. You should have a follow up chest xray in 3-4 weeks to ensure your pneumonia has cleared. Follow up with Cardiology as planned. Follow up with your PCP-this will be scheduled for you. Pending Studies at Discharge: Yes (Final blood cultures, sputum culture) Stand-Alone Forms: My [facility] Medications and DC Order Prescriptions: New Fluticasone-Ume 1 puffs INH DAILY Qty: 1 RF: 0 doxycycline hyclate 100 mg tablet 100 mg PO BID Qty: 10 RF: 0 cefdinir 300 mg capsule 300 mg PO BID 5 Days Qty: 10 RF: 0 Continued (DME) OneTouch Verio strip See Dose Instructions .ROUTE .MEDSUPPLY Qty: 100 RF: 3 potassium chloride 10 mEq tablet extended release 10 meq PO DAILY Qty: 30 RF: 11 finasteride 5 mg tablet 5 mg PO DAILY Qty: 90 RF: 3 albuterol sulfate 2.5 mg /3 mL (0.083 %) solution for nebulization 2.5 mg INH Q4H PRN (Reason: wheezing) RF: 0 nitroglycerin [Nitrostat] 0.4 mg tablet, sublingual 0.4 mg sublingual DIRECTED PRN (Reason: Chest Pain) Qty: 25 RF: 5 atorvastatin 10 mg tablet 10 mg PO HS Qty: 90 RF: 3 hydralazine 100 mg tablet 100 mg PO TID Qty: 270 RF: 3 isosorbide mononitrate 60 mg tablet extended release 24 hr 60 mg PO DAILY Qty: 90 RF: 3 metformin 500 mg tablet 1,000 mg PO BID Qty: 360 RF: 3 omeprazole 40 mg capsule,delayed release(DR/EC) 40 mg PO BID Qty: 180 RF: 3 aspirin 81 mg tablet,delayed release (DR/EC) 81 mg PO .qod RF: 0 allopurinol 100 mg tablet 200 mg PO DAILY Qty: 180 RF: 3 (DME) Oxygen Home Liters Per Minute See Dose Instructions .ROUTE .MEDSUPPLY Qty: 1 RF: 0 ProAir RespiClick 90 mcg/actuation aerosol powdr breath activated 1 - 2 inh INHALATION Q4H PRN (Reason: Cough or Tightness in Chest) Qty: 1 RF: 3 carvedilol 25 mg tablet 25 mg PO BID Qty: 180 RF: 3 PreserVision AREDS [id number] capsule 1 cap PO BID Qty: 180 RF: 3 acetaminophen 500 mg Tablet 1,000 mg PO Q8H PRN (Reason: Pain) RF: 0 furosemide 80 mg tablet 80 mg PO BID RF: 0 Natural Enzyme 1 dose PO BID RF: 0 ferrous gluconate 324 mg (38 mg iron) Tablet 324 mg PO QID RF: 0 Changed Novolin 70/30 U-100 Insulin 100 unit/mL (70-30) suspension See Rx Instructions SUBCUT BID Qty: 30 RF: 3 Discontinued valsartan 80 mg tablet 80 mg PO DAILY Qty: 90 RF: 3 Discharge Orders: Discharge Order (Routine); Ordered 09/29/19 Ordered By: Lynette Orozco Admission Data Admit Date/Time: 09/27/19 23:12 Attending Provider: Lynette Orozco Admit Provider: Tyrone Ward Primary Care Provider: Eonch Boo Other Providers: Tyrone Ward ; Chandan Maradiaga Other Interventions: Discharge Summary Assessment (RN) Last Done: 09/29/19 11:31 Coding Level of Care Code D/C Day Management >30 mins Diagnoses Left upper lobe pneumonia J18.9 Pneumonia type: due to unspecified organism Precordial chest pain R07.2 Bradycardia R00.1 Type 2 diabetes mellitus E11.9 Chronic back pain M54.9; G89.29 Chronic obstructive pulmonary disease J44.9 Gout M10.9 GERD without esophagitis K21.9 Chronic diastolic (congestive) heart failure I50.32 BPH with obstruction/lower urinary tract symptoms N40.1; N13.8 Hypertension I10 Obstructive sleep apnea (adult) (pediatric) G47.33 Chronic respiratory failure with hypoxia J96.11 DVT prophylaxis Z29.9
--- NOTE | 2019-09-29 17:26 | Electrocardiogram Report ---
Test Reason : Blood Pressure : / mmHG Vent. Rate : 089 BPM Atrial Rate : 150 BPM P-R Int : 146 ms QRS Dur : 128 ms QT Int : 402 ms P-R-T Axes : 018 -46 093 degrees QTc Int : 489 ms sinus rhythm with PACs in a pattern of atrial bigeminy Left axis deviation Left ventricular hypertrophy with QRS widening and repolarization abnormality Abnormal ECG Confirmed by Obi Mota ([id number]) on 09/29/2019 5:26:18 PM Referred By: REFERRED SELF Confirmed By:Luis Fernando Mota
== END 2019-09-29 13:41 | disposition home or self-care (01) | DRG 193 ==
LOC: ED 20:14 → 2S 23:12 → SUATTDRO 23:12 → 2S 23:54
DX: Z98.890 Other specified postprocedural states; E11.9 Type 2 diabetes mellitus without complications; R07.2 Precordial pain; Z99.89 Dependence on other enabling machines and devices; K21.9 Gastro-esophageal reflux disease without esophagitis; Z79.82 Long term (current) use of aspirin; Z79.899 Other long term (current) drug therapy; I25.10 Atherosclerotic heart disease of native coronary artery without angina pectoris; I25.2 Old myocardial infarction; G89.29 Other chronic pain; I87.2 Venous insufficiency (chronic) (peripheral); Z87.891 Personal history of nicotine dependence; J18.1 Lobar pneumonia, unspecified organism; M54.5 Low back pain; I49.49 Other premature depolarization; J44.0 Chronic obstructive pulmonary disease with (acute) lower respiratory infection; I11.0 Hypertensive heart disease with heart failure; M10.9 Gout, unspecified; Z99.81 Dependence on supplemental oxygen; I50.32 Chronic diastolic (congestive) heart failure; Z79.4 Long term (current) use of insulin; Z88.8 Allergy status to other drugs, medicaments and biological substances; G47.33 Obstructive sleep apnea (adult) (pediatric); N40.1 Benign prostatic hyperplasia with lower urinary tract symptoms; J96.21 Acute and chronic respiratory failure with hypoxia; R00.8 Other abnormalities of heart beat; R00.1 Bradycardia, unspecified